=== PATIENT | female | born 1950 | race Caucasian/White ===

== ENCOUNTER 2018-05-30 15:31 | Emergency (ER) | payer MEDICARE ==
[~2018-05-30] VITALS: Ht 165.1 cm; Wt 79.4 kg
[2018-05-30] MEDS ORDERED: FAMOTIDINE 20 MG/2 ML VIAL IV STA (15:41)
[2018-05-30] MEDS ORDERED: DEXAMETHASONE SOD PHOS INJ 4 MG/ML VIAL ONE (15:42)
[2018-05-30] MEDS ORDERED: DIPHENHYDRAMINE HCL INJ 50 MG/ML VIAL ONE (15:42)
[2018-05-30] MEDS ORDERED: DEXAMETHASONE SOD PHOS 10 MG/1 ML VIAL IV ONE (15:45)
[2018-05-30] MEDS ORDERED: DIPHENHYDRAMINE HCL INJ 50 MG/ML VIAL IV ONE (15:45)
[2018-05-30] MEDS ORDERED: SODIUM CHLORIDE 0.9% 1000ML 1,000 ML IV ONE (16:00)
[2018-05-30 16:23] LABS: BASOPHILS % 0.5 % (0.0-1.0); EOSINOPHILS # (AUTO) 0.1 (0.0-0.4); HEMATOCRIT 46.5 % (34.2-44.1); HEMOGLOBIN 15.3 g/dL (12.0-16.0); LYMPHOCYTES # (AUTO) 3.3 (1.0-3.2); LYMPHOCYTES % 39.9 % (18.0-39.1); MEAN CORPUSCULAR HGB CONC 32.9 g/dL (31-35); MEAN CORPUSCULAR VOLUME 85.2 fL (81-99); MONOCYTES # (AUTO) 0.6 (0.2-0.8); MONOCYTES % 7.4 % (4.4-11.3); NEUTROPHILS # (AUTO) 4.2 (2.1-6.9); PLATELET COUNT 487 x10e3/uL (140-360); RED BLOOD COUNT 5.46 x10e6/uL (3.6-5.1); RED CELL DISTRIBUTION WIDTH 13.5 % (11.7-14.4)
[2018-05-30 16:36] LABS: ANION GAP 17.2 mmol/L (8-16); CREATININE, SERUM 1.09 mg/dL (0.57-1.11); POTASSIUM 4.2 mmol/L (3.5-5.1)
[2018-05-30 16:43] LABS: CREATINE KINASE MB 1.7 ng/mL (0-5.0)
[2018-05-30] MEDS ORDERED: LISINOPRIL10 MG PO (16:50)
[2018-05-30] MEDS ORDERED: ASPIRIN325 MG PO (16:50)
[2018-05-30] MEDS ORDERED: CARVEDILOL12.5 MG PO (16:50)
[2018-05-30] MEDS ORDERED: IBUPROFEN400 MG PO (16:50)
[2018-05-30 19:06] VITALS: BP 103/65
== END 2018-05-30 19:35 | disposition home or self-care (01) ==
LOC: ER 15:31
DX: L50.9 Urticaria, unspecified (principal); T88.6XXA Anaphylactic reaction due to adverse effect of correct drug or medicament properly administered, initial encounter; T36.1X5A Adverse effect of cephalosporins and other beta-lactam antibiotics, initial encounter; I10 Essential (primary) hypertension
CPT/HCPCS: 36415; 80048; 82550; 82553; 84484; 85025; 93005; 99284; J1100; J1200

== ENCOUNTER 2018-09-23 00:17 | Emergency (ER) | payer MEDICARE ==
[~2018-09-23] VITALS: Ht 165.1 cm; Wt 79.4 kg
[~2018-09-23 00:17] MED LIST: ASPIRIN325 MG PO; CARVEDILOL12.5 MG PO; IBUPROFEN400 MG PO; LISINOPRIL10 MG PO
--- OUTSIDE RECORDS SUMMARY | 2018-09-23 00:20 | XMS REPORT | Clinical Summary ---
Author Author [facility] Organization [facility] Address Unknown Phone Unavailable Care Team Providers Care Project Associate Name Role Phone Narayan Meeks MD PCP Unavailable Allergies Comments Active Allergy Reactions Severity Noted Date Restricted Airway Penicillins Anaphylaxis High 12/04/2015 Medications End Date Status Medication Sig Dispensed Refills Start Date Active acetaminophen (TYLENOL) Take 500 mg 0 500 MG tablet by mouth every 6 (six) hours as needed for mild pain. Active carvedilol (COREG) 25 MG Take 25 mg by 0 tablet mouth daily. Active lisinopril Take 40 mg by 0 (PRINIVIL,ZESTRIL) 40 mg mouth every tablet morning. 08/18/2019 Active cephalexin (KEFLEX) 500 TAKE ONE 100 capsule 3 MG capsuleIndications: CAPSULE BY 8 Urinary tract infection MOUTH 4 TIMES without hematuria, site DAILY unspecified NEEDED (DYSURIA) FOR UP TO 360 DAYS 02/22/2019 Active ciprofloxacin (CIPRO) 500 Take 1 tablet 20 tablet 2 MG tabletIndications: (500 mg 8 Recurrent UTI total) by mouth 2 (two) times a day as needed (UTI symptoms) for up to 180 days. 07/06/2018 Discontinued diltiazem (CardIZEM) 30 Take 30 mg by 0 MG tablet mouth 4 (four) times a day. 10/07/2017 conjugated estrogens Insert 1 g 30 g 1 (PREMARIN) 0.625 mg/gram into the 7 vaginal creamIndications: vagina 2 Urinary tract infection (two) times a with hematuria, site week. unspecified 07/06/2018 Discontinued cephalexin (KEFLEX) 500 Take 1 100 capsule 3 MG capsuleIndications: capsule (500 7 Urinary tract infection mg total) by without hematuria, site mouth 4 unspecified (four) times a day as needed (dysuria) for up to 360 days. 10/27/2017 Discontinued ciprofloxacin (CIPRO) 500 Take 1 tablet 14 tablet 2 MG tabletIndications: (500 mg 7 Urinary tract infection total) by without hematuria, site mouth 2 (two) unspecified times a day for 7 days. 11/03/2017 ciprofloxacin (CIPRO) 500 TAKE ONE 14 tablet 2 MG tabletIndications: TABLET BY 8 Urinary tract infection MOUTH TWICE without hematuria, site DAILY FOR 7 unspecified DAYS 01/09/2018 ciprofloxacin (CIPRO) 500 Take 1 tablet 14 tablet 0 MG tabletIndications: (500 mg 8 Urinary tract infection total) by without hematuria, site mouth 2 (two) unspecified times a day for 7 days. for 7 days 04/21/2018 ciprofloxacin (CIPRO) 500 TAKE 1 TABLET 14 tablet 2 MG tablet BY MOUTH 8 TWICE DAILY FOR 7 DAYS 06/04/2018 ciprofloxacin (CIPRO) 500 Take 1 tablet 14 tablet 1 MG tabletIndications: (500 mg 8 Urinary tract infection total) by without hematuria, site mouth 2 (two) unspecified times a day for 14 days. 05/31/2018 fluconazole (DIFLUCAN) Take 1 tablet 5 tablet 1 100 MG tablet (100 mg 8 total) by mouth daily as needed (vaginal itching) for up to 10 days. 07/03/2018 fluconazole (DIFLUCAN) Take 1 tablet 7 tablet 0 100 MG tablet (100 mg 8 total) by mouth daily for 7 days. 07/08/2018 Discontinued ibuprofen (ADVIL,MOTRIN) Take 800 mg 0 800 MG tablet by mouth every morning. 07/08/2018 Discontinued aspirin 325 MG tablet Take 325 mg 0 by mouth nightly. 08/07/2018 pantoprazole (PROTONIX) Take 1 tablet 60 tablet 0 40 MG EC (40 mg total) 8 tabletIndications: by mouth 2 Anemia, unspecified type (two) times a day for 30 days. 08/07/2018 diclofenac (VOLTAREN) 1 % Apply 1 Tube 0 gel topically 4 8 (four) times a day for 30 days. 07/14/2018 Discontinued sulfamethoxazole-trimetho Take 1 tablet 14 tablet 0 prim (BACTRIM DS) 800-160 by mouth 2 8 mg per tablet (two) times a day for 7 days. 07/23/2018 Discontinued sulfamethoxazole-trimetho Take 1 tablet 30 tablet 0 prim (BACTRIM DS) 800-160 by mouth 2 8 mg per tabletIndications: (two) times a Recurrent UTI day for 15 days. 08/01/2018 ertapenem 1 g in sodium Infuse 1 g 0 chloride 0.9% 50 mL IVPB into a venous 8 catheter daily for 8 days. 08/13/2018 fluconazole (DIFLUCAN) Take 1 tablet 10 tablet 0 200 MG tablet (200 mg 8 total) by mouth daily for 10 days. Active Problems Problem Noted Date Pyelonephritis 08/03/2018 Anemia 07/06/2018 GI bleed 07/06/2018 Gastrointestinal hemorrhage associated with gastritis 07/06/2018 Overview: Added automatically from request for surgery [id number] Uterine fibroid 12/04/2015 Renal cell carcinoma 12/04/2015 Overview: left Resolved Problems Problem Noted Date Resolved Date Flank pain 07/21/2018 08/03/2018 Urinary tract infection 12/04/2015 08/03/2018 Encounters Care Team Description Date Type Specialty Narayan Meeks MD Recurrent UTI (Primary Dx) 08/26/2018 Refill UrologNarayan Arizmendi MD Urinary tract infection without hematuria, site unspecified 08/18/2018 Refill Narayan Esparza MD Pyelonephritis (Primary Dx); Renal cell carcinoma of left kidney (HCC) 08/03/2018 Office Visit Narayan Esparza MD 07/30/2018 Telephone Narayan Esparza MD 07/29/2018 Telephone Narayan Esparza MD 07/29/2018 Orders Only Urology Alize Fitzgerald RN 07/23/2018 Telephone General Internal Medicine Akin Villarreal MD Nathani, Imran Sattar, MD Flank pain (Primary Dx); Fever, unspecified fever cause; Bacteriuria; Acute kidney injury (HCC); Urinary tract infection without hematuria, site unspecified 07/21/2018 [facility] General Internal Medicine - Encounter 07/23/2018 Narayan Meeks MD 07/21/2018 Telephone Urology Narayan Meeks MD Recurrent UTI (Primary Dx); Renal cell carcinoma of left kidney (HCC); Gastrointestinal hemorrhage associated with acute gastritis 07/14/2018 Office Visit Urology Carloz Velazquez MD Recurrent UTI (Primary Dx) 07/09/2018 Office Visit Internal Medicine Jesus Clay MD 07/07/2018 Anesthesia Gastroenterology Event Dmitriy Simpson MD ESOPHAGOGASTRODUODENOSCOPY (EGD) 07/07/2018 Surgery Gastroenterology Vladimir Bejarano MD Colton, Lara, MD Anemia, unspecified type (Primary Dx); Gastrointestinal hemorrhage with melena; Generalized abdominal pain; Dizziness; Syncope, unspecified syncope type; Weakness generalized; Gastrointestinal hemorrhage associated with gastritis, unspecified gastritis type; Acute hyperglycemia 07/06/2018 [facility] Orthopedic Surgery - Encounter 07/08/2018 Narayan Meeks MD 06/26/2018 Telephone UrologNarayan Arizmendi MD Renal cell carcinoma of left kidney (Primary Dx); Urinary tract infection without hematuria, site unspecified 05/21/2018 Office Visit Narayan Esparza MD 05/20/2018 Telephone Narayan Esparza MD 04/14/2018 Refill Urology Narayan Meeks MD Urinary tract infection without hematuria, site unspecified (Primary Dx) 01/02/2018 Refill Urology Narayan Meeks MD Urinary tract infection without hematuria, site unspecified 10/27/2017 Refill Urology after 09/22/2017 Family History Relation Name Status Comments Brother Brother Father Mother Sister Sister Social History Date Tobacco Use Types Packs/Day Years Used Never Smoker Smokeless Tobacco: Never Used Alcohol Use Drinks/Week oz/Week Comments No Sex Assigned at Date Recorded Not on file Industry Job Start Date Occupation Not on file Not on file Not on file Travel End Travel History Travel Start No recent travel history available. Last Filed Vital Signs Time Taken Vital Sign Reading 08/03/2018 3:15 PM [facility] Blood Pressure 151/87 08/03/2018 3:15 PM [facility] Pulse 59 07/23/2018 7:47 AM CDT Temperature 36.8 C (98.3 F) 08/03/2018 3:15 PM [facility] Respiratory Rate 18 07/23/2018 10:43 AM CDT Oxygen Saturation 94% - Inhaled Oxygen - Concentration 08/03/2018 3:15 PM [facility] Weight 105 kg (231 lb) 08/03/2018 3:15 PM [facility] Height 165.1 cm (5' 5") 08/03/2018 3:15 PM [facility] Body Mass Index 38.44 Plan of Treatment Care Team Description Date Type Specialty Carloz Velazquez MD [id number] [place] [address] [phone] 10/08/2018 Office Visit [place] [address] [address] [address] [place], [place] [id number] 08/26/2019 Office Visit Urology Health Maintenance Due Date Last Done Comments BREAST CANCER SCREENING 2002 COLON CANCER SCREENING 2002 SHINGLES VACCINES (1 of 2002 2) PNEUMOCOCCAL 2017 POLYSACCHARIDE VACCINE AGE 65 AND OVER PNEUMOCOCCAL-13 2017 INFLUENZA VACCINE 04/22/2018 Procedures Comments Procedure Name Priority Date/Time Associated Diagnosis URINALYSIS SCREEN AND Routine 08/05/2018 Complicated urinary tract MICROSCOPY, WITH REFLEX 10:01 AM [facility] infection TO CULTURE URINE CULTURE Routine 08/05/2018 10:01 AM [facility] POC URINALYSIS DIPSTICK Routine 08/03/2018 Pyelonephritis 4:39 PM [facility] URINE CULTURE Routine 08/03/2018 Pyelonephritis 3:39 PM [facility] URINALYSIS, AUTOMATED Routine 08/03/2018 Pyelonephritis WITH MICROSCOPY 3:38 PM [facility] OBTAIN MEDICAL RECORDS Routine 07/29/2018 HC CATH DUAL LUMEN PICC Routine 07/23/2018 4:07 PM CDT HC US GUIDED VASCULAR Routine 07/23/2018 ACCESS 4:07 PM CDT HC CVL PICC INSERT 5 YRS Routine 07/23/2018 OR > W/O IMG GUID 4:07 PM CDT ESTIMATED GFR Routine 07/23/2018 4:15 AM CDT BASIC METABOLIC PANEL Routine 07/23/2018 4:15 AM CDT HC COMPLETE BLD COUNT Routine 07/23/2018 W/AUTO DIFF 4:15 AM CDT MRI ABDOMEN W WO CONTRAST Routine 07/22/2018 5:11 PM CDT BLOOD CULTURE, AEROBIC & Routine 07/21/2018 ANAEROBIC 11:[address] RENAL STONE PROTOCOL STAT 07/21/2018 11:25 AM CDT BLOOD CULTURE, AEROBIC & Routine 07/21/2018 ANAEROBIC 11:22 AM CDT ESTIMATED GFR STAT 07/21/2018 9:10 AM CDT MAGNESIUM LEVEL STAT 07/21/2018 9:10 AM CDT COMPREHENSIVE METABOLIC STAT 07/21/2018 PANEL 9:10 AM CDT URINALYSIS SCREEN AND STAT 07/21/2018 MICROSCOPY, WITH REFLEX 9:10 AM CDT TO CULTURE HC COMPLETE BLD COUNT STAT 07/21/2018 W/AUTO DIFF 9:10 AM CDT GRAM STAIN STAT 07/21/2018 9:10 AM CDT URINE CULTURE STAT 07/21/2018 9:10 AM CDT POC URINALYSIS DIPSTICK Routine 07/14/2018 Recurrent UTI 5:00 PM CDT URINE CULTURE Routine 07/14/2018 Recurrent UTI 4:50 PM CDT POC URINALYSIS DIPSTICK Routine 07/09/2018 Recurrent UTI 4:52 PM CDT URINALYSIS, COMPLETE, Routine 07/09/2018 Recurrent UTI WITH REFLEX TO CULTURE 4:45 PM CDT URINE CULTURE Routine 07/09/2018 4:45 PM CDT HC COMPLETE BLD COUNT Routine 07/08/2018 W/AUTO DIFF 6:54 AM CDT TOTAL IRON BINDING Routine 07/08/2018 CAPACITY 6:54 AM CDT RETICULOCYTE COUNT Routine 07/08/2018 6:54 AM CDT FERRITIN LEVEL Routine 07/08/2018 6:54 AM CDT TRANSFUSE RED BLOOD CELLS STAT 07/07/2018 7:36 PM CDT HC COMPLETE BLD COUNT STAT 07/07/2018 W/AUTO DIFF 4:12 PM CDT TRANSFUSE RED BLOOD CELLS STAT 07/07/2018 2:49 PM CDT SURGICAL PATHOLOGY Routine 07/07/2018 REQUEST 1:53 PM CDT ESOPHAGOGASTRODUODENOSCOP 07/07/2018 Gastrointestinal Y (EGD) 10:00 AM CDT hemorrhage associated with gastritis, unspecified gastritis type SMEAR REVIEW Routine 07/07/2018 3:48 AM CDT TROPONIN Routine 07/07/2018 3:48 AM CDT ESTIMATED GFR Routine 07/07/2018 3:48 AM CDT HC COMPLETE BLD COUNT Routine 07/07/2018 W/AUTO DIFF 3:48 AM CDT BASIC METABOLIC PANEL Routine 07/07/2018 3:48 AM CDT TRANSFUSE RED BLOOD CELLS STAT 07/07/2018 2:34 AM CDT TRANSFUSE RED BLOOD CELLS STAT 07/06/2018 11:34 PM CDT GRAM STAIN STAT 07/06/2018 10:15 PM CDT URINE CULTURE STAT 07/06/2018 10:15 PM CDT URINALYSIS SCREEN AND STAT 07/06/2018 MICROSCOPY, WITH REFLEX 10:06 PM CDT TO CULTURE GASTROINTESTINAL PANEL Routine 07/06/2018 8:17 PM CDT B NATRIURETIC PEPTIDE STAT 07/06/2018 7:40 PM CDT TROPONIN STAT 07/06/2018 7:40 PM CDT ECG 12-LEAD STAT 07/06/2018 7:19 PM CDT [facility], E/M Routine 07/06/2018 30-74 MINUTES 6:31 PM CDT PREPARE RBC Timed 07/06/2018 5:20 PM CDT PREPARE RBC Timed 07/06/2018 5:20 PM CDT PREPARE RBC Timed 07/06/2018 5:20 PM CDT SMEAR REVIEW STAT 07/06/2018 5:20 PM CDT ESTIMATED GFR STAT 07/06/2018 5:20 PM CDT TYPE AND SCREEN Timed 07/06/2018 5:20 PM CDT LIPASE LEVEL STAT 07/06/2018 5:20 PM CDT COMPREHENSIVE METABOLIC STAT 07/06/2018 PANEL 5:20 PM CDT HC COMPLETE BLD COUNT STAT 07/06/2018 W/AUTO DIFF 5:20 PM CDT CREATININE LEVEL Routine 05/20/2018 Renal cell carcinoma of 10:31 AM CDT left kidney after 09/22/2017 Results * Urinalysis screen and microscopy, with reflex to culture (08/05/2018 10:01 AM [facility]) Only the most recent of 3 results within the time period is included. Specimen site Clean catch [facility] Color, UA Straw YELLOW [facility] Appearance, UA Clear Clear [facility] Specific gravity, UA 1.018 1.005 - 1.030 [facility] pH, UA 5.0 5.0 - 8.0 [facility] Protein, UA Negative Negative [facility] Glucose, UA Negative Negative [facility] Ketones, UA Negative Negative [facility] Bilirubin, UA Negative Negative [facility] Blood, UA Negative Negative [facility] Nitrite, UA Negative NEGATIVE [facility] Urobilinogen, UA <2.0 <2.0 E.U./dL [facility] Leukocyte esterase, UA Negative Negative [facility] Epithelial cells, UA 1 0 - 15 /HPF [facility] WBC, UA None seen 0 - 5 /Hpf [facility] RBC, UA None seen 0 - 5 /HPF [facility] Bacteria, UA None seen None seen [facility] Yeast, UA None seen None Seen [facility] Yeast with pseudohyphae, None seen [facility] Specimen Urine Performing Organization Address City/[facility] [place] [address] PATHOLOGY AND GENOMIC MEDICINE [address] * Urine culture (08/05/2018 10:01 AM [facility]) Only the most recent of 6 results within the time period is included. Urine culture SEE COMMENTComment: [facility] Bacteriuria screen negative. [facility] Performing Organization Address [facility] [place] [address] PATHOLOGY AND GENOMIC MEDICINE [address] * POC urinalysis dipstick (08/03/2018 4:39 PM [facility]) Only the most recent of 3 results within the time period is included. Color urine, POC Yellow Clarity urine, POC Clear Glucose urine, POC Negative Negative Bilirubin urine, POC Negative Negative Ketones urine, POC Negative Negative Specific gravity urine, >/=1.030 1.005 - 1.030 POC Blood urine, POC Trace (A) Negative pH urine, POC 5.5 5.0, 5.5, 6.0, 6.5, 7.0, 7.5, 8.0, 8.5 Protein urine, POC Negative Negative Urobilinogen urine, POC <2.0 <2.0 Nitrite urine, POC Negative Negative Leukocyte esterase urine, Negative Negative POC Specimen Urine * Urinalysis, automated with microscopy (08/03/2018 3:38 PM [facility]) Color, UA YELLOW YELLOW [facility] [employer] Appearance CLOUDY (A) CLEAR [facility] [employer] Specific gravity, urine 1.022 1.001 - 1.035 [facility] [employer] pH, urine 5.5 5.0 - 8.0 [facility] [employer] Glucose, urine NEGATIVE NEGATIVE [facility] [employer] Bilirubin, UA NEGATIVE NEGATIVE [facility] [employer] Ketones, UA NEGATIVE NEGATIVE [facility] [employer] Occult blood, urine NEGATIVE NEGATIVE [facility] [employer] Protein, UA NEGATIVE NEGATIVE [facility] [employer] Nitrite, UA NEGATIVE NEGATIVE [facility] [employer] Leukocyte esterase, UA NEGATIVE NEGATIVE [facility] [employer] WBC, UA 0-5 < OR=5 /HPF [facility] [employer] RBC, UA 0-2 < OR=2 /HPF [facility] [employer] Squamous epithelial 0-5 < OR=5 /HPF [facility] cells, UA [employer] Bacteria, UA FEW (A) NONE SEEN /HPF [facility] [employer] Hyaline casts, UA NONE SEEN NONE SEEN /LPF [facility] [employer] Specimen Urine Resulting Agency Comment Performing Organization Information: Site ID: [id number] Name: [facility] Address: [address] [place] [id number] Director: Danelle Mujica Performing Organization Address City/State/Zipcode [place] [address] * Obtain medical records (07/29/2018) Narrative Performed At * PICC INSERTION (07/23/2018 4:07 PM CDT) Narrative Performed At Johanna Dan RN 07/23/20184:09 PM PICC insertion Date/Time: 07/23/2018 4:08 PM Performed by: JOHANNA DAN Authorized by: YAYA VERAS Consent: Consent obtained:Verbal Consent given by:Patient Risks discussed: infection, superficial thrombus and deep vein thrombus [place] protocol: Procedure explained and questions answered to patient or proxy's satisfaction: yes Relevant documents present and verified: yes Test results available and properly labeled: yes Imaging studies available: yes Required blood products, implants, devices, and special equipment available: yes Site/side marked: yes Immediately prior to procedure, a time out was called: yes Patient identity confirmed:Verbally with patient and arm band Pre-procedure details: Hand hygiene: Hand hygiene performed prior to insertion Sterile barrier technique: All elements of maximal sterile technique followed Skin preparation:ChloraPrep Skin preparation agent: Skin preparation agent completely dried prior to procedure Anesthesia (see MAR for exact dosages): Anesthesia method:Local infiltration Local anesthetic:Lidocaine 1% w/o epi PICC Line Placement Details (Will create an LDA): Patient position:Trendelenburg Indication:Known [facility] IV therapy Location:Left basilic Device Type:Non-valved Catheter size:5 Fr PICC Characteristics: Catheter Brand:[employer] Internal Catheter Length (cm):41 Total Catheter Length (cm):41 Catheter Lot Number:[id number] Catheter Expiration Date:06/21/2019 Procedure Details: Landmarks identified: yes Ultrasound guidance: yes Sterile ultrasound techniques: Sterile gel and sterile probe covers were used Number of attempts:1 Number of PICC kits used during procedure:1 Purpose of procedure:PICC Placement Successful PICC Placement: Yes Patency/Placement:Flushes without difficulty, flushed with 10 mL normal saline, positive blood return and injection cap placed PICC placed utlizing ultrasound-guided Modified Seldinger Technique: Yes Dressing/Securement:Catheter securement device and antimicrobial dressing applied Blood Loss Amount:Less than 20 mL Post-Procedure Details: Post-procedure:Dressing applied Patient tolerance of procedure:Tolerated well, no immediate complications Comments: ECG tip verification. * Estimated GFR (07/23/2018 4:15 AM CDT) Only the most recent of 4 results within the time period is included. Estimated GFR 77 mL/min/1.73 m2 [facility] DEPARTMENT OF Comment: PATHOLOGY AND CatergoryUnitsInte GENOMIC MEDICINE rpretation G1 >=90 Normal or high G2 60-89Mildly decreased [id number] Mildly to moderately decreased [id number] Moderately to severely decreased G4 15-29Severely decreased G5 <15Kidney failure The eGFR was calculated using the Chronic Kidney Disease Epidemiology Collaboration (CKD-EPI) equation. Interpretation is based on recommendations of the National Kidney Foundation-Kidney Disease Outcomes Quality Initiative (NKF-KDOQI) published in 2014. Specimen Plasma specimen Performing Organization Address [facility]/Zipcode Phone Number [facility] [phone] [place], [place] [address] [place] [address] PATHOLOGY AND GENOMIC MEDICINE * CBC with platelet and differential (07/23/2018 4:15 AM CDT) Only the most recent of 6 results within the time period is included. WBC 2.7 (L) 4.5 - 11.0 k/uL [facility] DEPARTMENT OF PATHOLOGY AND GENOMIC MEDICINE RBC 3.45 (L) 4.20 - 5.50 M/uL [facility] DEPARTMENT OF PATHOLOGY AND GENOMIC MEDICINE HGB 9.8 (L) 14.0 - 18.0 g/dL [facility] DEPARTMENT OF PATHOLOGY AND GENOMIC MEDICINE HCT 31.0 (L) 37.0 - 47.0 % [facility] DEPARTMENT OF PATHOLOGY AND GENOMIC MEDICINE MCV 89.9 82.0 - 100.0 fL [facility] MCH 28.4 27.0 - 34.0 pg [facility] OF PATHOLOGY AND GENOMIC MEDICINE MCHC 31.6 31.0 - 37.0 g/dL [facility] DE[facility] OF PATHOLOGY AND GENOMIC MEDICINE RDW - SD 53.4 37.0 - 55.0 fL [facility] DE[facility] OF PATHOLOGY AND GENOMIC MEDICINE MPV 10.2 8.8 - 13.2 fL [facility]OLOG[facility] AND GENOMIC MEDICINE Platelet count 186 150 - 400 K/uL [facility] DEPARTMENT OF PATHOLOGY AND GENOMIC MEDICINE Nucleated RBC 0.00 /100 WBC [facility]OLOG[facility] AND GENOMIC MEDICINE Neutrophils 36.0 (L) 39.0 - 69.0 % [facility] DEPARTMENT OF PATHOLOGY AND GENOMIC MEDICINE Lymphocytes 46.7 (H) 25.0 - 45.0 % [facility]OLOG[facility] AND GENOMIC MEDICINE Monocytes 14.0 (H) 0.0 - 10.0 % [facility] DEPARTMENT OF PATHOLOGY AND GENOMIC MEDICINE Eosinophils 2.6 0.0 - 5.0 % [facility] DEPARTMENT OF PATHOLOGY AND GENOMIC MEDICINE Basophils 0.7 0.0 - 1.0 % [facility] DEPARTMENT OF PATHOLOGY AND GENOMIC MEDICINE Immature granulocytes 0.0Comment: "Immature 0.0 - 1.0 % [facility] DEPARTMENT OF granulocytes" (promyelocytes, PATHOLOGY AND myelocytes, metamyelocytes) GENOMIC MEDICINE Specimen Blood Performing Organization Address City/[facility]/Zipcode Phone Number [facility] [phone] [place], [place] [address] [place] [address] PATHOLOGY AND GENOMIC MEDICINE * Basic metabolic panel (07/23/2018 4:15 AM CDT) Only the most recent of 2 results within the time period is included. Sodium 138 135 - 148 mEq/L [facility] OF PATHOLOGY AND GENOMIC MEDICINE Potassium 4.4 3.5 - 5.0 mEq/L [facility] OF PATHOLOGY AND GENOMIC MEDICINE Chloride 107 99 - 109 mEq/L [facility] OF PATHOLOGY AND [facility]IC MEDICINE CO2 18 (L) 24 - 31 mEq/L [facility] OF PATHOLOGY AND [facility]ICINE Anion gap 13@ANIO 7 - 15 mEq/L [facility]OLOGY [facility] BUN 11 8 - 24 mg/dL [facility] Creatinine 0.80 0.50 - 0.90 mg/dL [facility] OF PATHOLOGY AND GENOMIC MEDICINE Glucose 113 (H) 65 - 99 mg/dL [facility] PATHOLOGY AND [facility]ICINE Calcium 8.3 (L) 8.6 - 10.6 mg/dL [facility] OF PATHOLOGY AND GENOMIC MEDICINE Specimen Plasma specimen Performing Organization Address City/State/Zipcode Phone Number [place] [phone] [facility] [address] [place] [address] PATHOLOGY AND GENOMIC MEDICINE * MRI Abdomen W Wo Contrast (07/22/2018 5:11 PM CDT) Narrative Performed At [facility] EXAMINATION:MRI ABDOMEN W WO CONTRAST CLINICAL HISTORY:Renal massrenal insufficiency, feverleft flank pain but history of left renal cell CA chromophobe 2.3 cm S P partial nephrectomy 2012 COMPARISON:Noncontrast CT July 21, 2018 TECHNIQUE: Multiplanar, multisequence MRI of the abdomen with and without intravenous gadolinium. FINDINGS: Image quality is moderately degraded on most of the sequences related to body habitus and motion artifact. Subtle scar is seen in the lower pole the left kidney consistent with partial nephrectomy. No locally recurrent mass is identified. There are 4 cysts in the left kidney, the largest measuring 1.2 cm in the upper pole and the other subcentimeter. No suspicious enhancing lesion is identified. Right kidney is unremarkable. No hydronephrosis. No perinephric edema or fluid collection. No retroperitoneal lymphadenopathy. Mild hepatic steatosis. No hepatic mass. The spleen is borderline enlarged. No adrenal mass. Unremarkable gallbladder. Pancreas is somewhat atrophic. Mild left and moderate dilatation of the common bile duct measuring 9 mm is nonspecific. No intrahepatic biliary dilatation. The pancreatic duct is also borderline dilated. No ascites. No suspicious osseous lesion. IMPRESSION: 1.No recurrent mass or metastatic disease in the abdomen status post left partial nephrectomy. 2.A few small left renal cysts, largest 1.2 cm. 3.Mild hepatic steatosis. [facility]-[id number] Procedure Note [facility], Radiology Results Incoming - 07/22/2018 5:32 PM CDT EXAMINATION: MRI ABDOMEN W WO CONTRAST CLINICAL HISTORY: Renal mass renal insufficiency, fever left flank pain but history of left renal cell CA chromophobe 2.3 cm S P partial nephrectomy 2012 COMPARISON: Noncontrast CT July 21, 2018 TECHNIQUE: Multiplanar, multisequence MRI of the abdomen with and without intravenous gadolinium. FINDINGS: Image quality is moderately degraded on most of the sequences related to body habitus and motion artifact. Subtle scar is seen in the lower pole the left kidney consistent with partial nephrectomy. No locally recurrent mass is identified. There are 4 cysts in the left kidney, the largest measuring 1.2 cm in the upper pole and the other subcentimeter. No suspicious enhancing lesion is identified. Right kidney is unremarkable. No hydronephrosis. No perinephric edema or fluid collection. No retroperitoneal lymphadenopathy. Mild hepatic steatosis. No hepatic mass. The spleen is borderline enlarged. No adrenal mass. Unremarkable gallbladder. Pancreas is somewhat atrophic. Mild left and moderate dilatation of the common bile duct measuring 9 mm is nonspecific. No intrahepatic biliary dilatation. The pancreatic duct is also borderline dilated. No ascites. No suspicious osseous lesion. IMPRESSION: 1. No recurrent mass or metastatic disease in the abdomen status post left partial nephrectomy. 2. A few small left renal cysts, largest 1.2 cm. 3. Mild hepatic steatosis. [facility]-[id number] Performing Organization Address [facility] Phone Number [facility] [address] [place] [address] * Blood culture, aerobic & anaerobic (07/21/2018 11:30 AM CDT) Only the most recent of 2 results within the time period is included. Blood culture isolate No growth after [address] [facility] DEPARTMENT OF incubation. PATHOLOGY AND Comment: GENOMIC MEDICINE Specimen Information Specimen Source: Blood Specimen Site: Hand, left Specimen Blood - Hand, left Performing Organization Address City/[facility]/Zipcode Phone Number [facility] DEPARTMENT OF [address] [place] [address] PATHOLOGY AND GENOMIC MEDICINE * CT Renal Stone Protocol (07/21/2018 11:25 AM CDT) Narrative Performed At EXAMINATION:CT RENAL STONE PROTOCOL RADIANT CLINICAL HISTORY:L flank painhematuria TECHNIQUE:Multiple axial images of the abdomen and pelvis were obtained without intravenous administration of iodinated contrast. Sagittal and coronal computerized reformatted images were also obtained. The lack of intravenous contrast reduces the sensitivity of detecting solid organ disease.CT scans are performed using radiation dose reduction techniques. Technical factors are evaluated and adjusted to ensure appropriate moderation of exposure. Automated dose management technology is applied to adjust radiation exposure while achieving a diagnostic quality image. COMPARISON:None. IMPRESSION: Abdomen: 1. There is no nephrolithiasis. The kidneys are normal in size and contour without hydronephrosis. There is a 10 mm renal cyst at the left upper pole. 2.The liver is normal in size and contour. The spleen is normal in size. The unenhanced pancreas, gallbladder, and adrenals are unremarkable. 3.Status post right lower quadrant abdominal wall mesh hernia repair. 4.Bowel is unobstructed. 5.The abdominal aorta is normal in caliber. There is no regional adenopathy. Pelvis: 1. The urinary bladder is unremarkable. 2.There is no pelvic mass or lymphadenopathy. 3.Degenerative change in the spine. [id number] Procedure Note Interface, Radiology Results Incoming - 07/21/2018 5:03 PM CDT EXAMINATION: CT RENAL STONE PROTOCOL CLINICAL HISTORY: L flank pain hematuria TECHNIQUE: Multiple axial images of the abdomen and pelvis were obtained without intravenous administration of iodinated contrast. Sagittal and coronal computerized reformatted images were also obtained. The lack of intravenous contrast reduces the sensitivity of detecting solid organ disease.CT scans are performed using radiation dose reduction techniques. Technical factors are evaluated and adjusted to ensure appropriate moderation of exposure. Automated dose management technology is applied to adjust radiation exposure while achieving a diagnostic quality image. COMPARISON: None. IMPRESSION: Abdomen: 1. There is no nephrolithiasis. The kidneys are normal in size and contour without hydronephrosis. There is a 10 mm renal cyst at the left upper pole. 2. The liver is normal in size and contour. The spleen is normal in size. The unenhanced pancreas, gallbladder, and adrenals are unremarkable. 3. Status post right lower quadrant abdominal wall mesh hernia repair. 4. Bowel is unobstructed. 5. The abdominal aorta is normal in caliber. There is no regional adenopathy. Pelvis: 1. The urinary bladder is unremarkable. 2. There is no pelvic mass or lymphadenopathy. 3. Degenerative change in the spine. [id number] Performing Organization Address City/[facility]/Zipcode Phone Number [facility] [address] [place] [address] * Gram stain (07/21/2018 9:10 AM CDT) Only the most recent of 2 results within the time period is included. Gram stain result No WBC's [facility] DEPARTMENT OF Few Gram negative rods PATHOLOGY AND Comment: GENOMIC MEDICINE Specimen Information Specimen Source: Urine Specimen Site: Random void Specimen Urine - Random void Performing Organization Address [facility]/Zipcode Phone Number [facility] [place] [address] PATHOLOGY AND GENOMIC MEDICINE * Magnesium level (07/21/2018 9:10 AM CDT) Magnesium 2.2 1.7 - 2.4 mg/dL [facility] DEPARTMENT OF PATHOLOGY AND GENOMIC MEDICINE Specimen Plasma specimen Performing Organization Address City/[facility] Cent[facility]ode Phone Number [facility] [address] [address] [facility] [address] [place] [address] PATHOLOGY AND [employer] MED[facility] * Comprehensive metabolic panel (07/21/2018 9:10 AM CDT) Only the most recent of 2 results within the time period is included. Sodium 135 135 - 148 mEq/L [facility] DEPARTMENT OF PATHOLOGY AND GENOMIC MEDICINE Potassium 5.2 (H) 3.5 - 5.0 mEq/L [facility] DEPARTMENT OF PATHOLOGY AND GENOMIC MEDICINE Chloride 101 99 - 109 mEq/L [facility] DEPARTMENT OF PATHOLOGY AND GENOMIC MEDICINE CO2 22 (L) 24 - 31 mEq/L [facility] DEPARTMENT OF PATHOLOGY AND GENOMIC MEDICINE Anion gap 12@ANIO 7 - 15 mEq/L [facility] DEPARTMENT OF PATHOLOGY AND GENOMIC MEDICINE BUN 20 8 - 24 mg/dL [facility] DEPARTMENT OF PATHOLOGY AND GENOMIC MEDICINE Creatinine 1.00 (H) 0.50 - 0.90 mg/dL [facility] DEPARTMENT OF PATHOLOGY AND GENOMIC MEDICINE Glucose 131 (H) 65 - 99 mg/dL [facility] DEPARTMENT OF PATHOLOGY AND GENOMIC MEDICINE Calcium 9.0 8.6 - 10.6 mg/dL [facility] DEPARTMENT OF PATHOLOGY AND GENOMIC MEDICINE Protein 8.0 6.3 - 8.2 g/dL [facility] DEPARTMENT OF PATHOLOGY AND GENOMIC MEDICINE Albumin 4.4 3.5 - 5.0 g/dL [facility] DEPARTMENT OF PATHOLOGY AND GENOMIC MEDICINE A/G ratio 1.22 0.70 - 3.80 [facility] DEPARTMENT OF PATHOLOGY AND GENOMIC MEDICINE Alkaline phosphatase 82 30 - 115 U/L [facility] DEPARTMENT OF PATHOLOGY AND GENOMIC MEDICINE AST 26 15 - 46 U/L [facility] DEPARTMENT PATHOLOGY AND GENOMIC MEDICINE ALT 31 10 - 55 U/L [facility] DEPARTMENT OF PATHOLOGY AND GENOMIC MEDICINE Total bilirubin 0.4 0.2 - 1.2 mg/dL [facility] OF PATHOLOGY AND GENOMIC MEDICINE Specimen Plasma specimen Performing Organization Address City/[facility] Centercode Phone Number [address] [place] [address] PATHOLOGY AND GENOMIC MEDICINE * URINALYSIS, COMPLETE, WITH REFLEX TO CULTURE (07/09/2018 4:45 PM CDT) Color, UA DARK YELLOW YELLOW [facility] [employer] Appearance CLOUDY (A) CLEAR [facility] Specific gravity, urine 1.031 1.001 - 1.035 [facility] [employer] pH, urine 6.0 5.0 - 8.0 [facility] [employer] Glucose, urine NEGATIVE NEGATIVE [facility] [employer] Bilirubin, UA NEGATIVE NEGATIVE [facility] [employer] Ketones, UA TRACE (A) NEGATIVE [facility] [employer] Occult blood, urine NEGATIVE NEGATIVE [facility] [employer] Protein, UA TRACE (A) NEGATIVE [facility] [employer] Nitrite, UA POSITIVE (A) NEGATIVE [facility] [employer] Leukocyte esterase, UA 2+ (A) NEGATIVE [facility] [employer] WBC, UA 10-20 (A) < OR=5 /HPF [facility] [employer] RBC, UA 0-2 < OR=2 /HPF [facility] [employer] Squamous epithelial 0-5 < OR=5 /HPF [facility] cells, UA [employer] Bacteria, UA MANY (A) NONE SEEN /HPF [facility] [employer] Calcium oxalate crystals, FEW NONE OR FEW /HPF [facility] UA [employer] Amorphous crystals FEW NONE OR FEW /HPF [facility] [employer] Hyaline casts, UA NONE SEEN NONE SEEN /LPF [facility] [employer] Comment FEW MUCOUS THREADS [facility] [employer] Reflex CULTURE INDICATED - RESULTS TO [facility] Narrative Performed At FASTING:NO [facility] FASTING: NO Resulting Agency Comment Performing Organization Information: Site ID: [id number] Name: [facility] Address: [address] [place] [address] Director: Danelle Mujica Performing Organization Address City/[facility]/Zipcode [place] [address] * Total iron binding capacity (07/08/2018 6:54 AM CDT) Iron level 69 37 - 145 ug/dL [facility] DEPARTMENT OF PATHOLOGY AND GENOMIC MEDICINE Iron binding capacity 348 200 - 400 ug/dL [facility] DEPARTMENT OF PATHOLOGY AND GENOMIC MEDICINE % Saturation 19.8 15.0 - 38.0 % [facility] DEPARTMENT OF PATHOLOGY AND GENOMIC MEDICINE Specimen Plasma specimen Performing Organization Address City/[facility] [address] PATHOLOGY AND [facility] MEDICINE * Reticulocyte count (07/08/2018 6:54 AM CDT) Retic %, auto 3.2 (H) 0.5 - 2.1 % [facility] DEPARTMENT OF PATHOLOGY AND GENOMIC MEDICINE Retic absolute, auto 0.1179 (H) 0.0210 - 0.1155 m/uL [facility] DEPARTMENT OF PATHOLOGY AND GENOMIC MEDICINE Specimen Blood Performing Organization Address [facility] [address] PATHOLOGY AND [facility] MEDICINE * Ferritin level (07/08/2018 6:54 AM CDT) Ferritin level 46 13 - 150 ng/mL [facility] DEPARTMENT OF PATHOLOGY AND GENOMIC MEDICINE Specimen Plasma specimen Performing Organization Address [facility] [place] [address] PATHOLOGY AND [facility] MEDICINE * Transfuse RBC, 2 Units (07/07/2018 7:36 PM CDT) Only the most recent of 6 results within the time period is included. * Surgical pathology request (07/07/2018 1:53 PM CDT) [facility] DEPARTMENT OF PATHOLOGY AND GENOMIC MEDICINE Surgical pathology report See link below for PDF Lab [facility] DEPARTMENT OF Report PATHOLOGY AND GENOMIC MEDICINE Result status This is Final Report for [facility] DEPARTMENT OF [id number] PATHOLOGY AND GENOMIC MEDICINE Performing Organization Address [facility] [place] [address] PATHOLOGY AND [facility] MEDICINE * Smear review (07/07/2018 3:48 AM CDT) Only the most recent of 2 results within the time period is included. Platelet slide review Sona adequate [facility] DEPARTMENT OF PATHOLOGY AND GENOMIC MEDICINE Anisocytosis Moderate [facility] DEPARTMENT OF PATHOLOGY AND GENOMIC MEDICINE Ovalocytes Moderate [facility] DEPARTMENT OF PATHOLOGY AND GENOMIC MEDICINE Performing Organization Address City/[facility]/Zipcode Phone Number [address] [address] PATHOLOGY AND GENOMIC MEDICINE * Troponin (07/07/2018 3:48 AM CDT) Only the most recent of 2 results within the time period is included. Troponin <0.30 0.00 - 0.30 ng/mL [facility] DEPARTMENT OF Comment: PATHOLOGY AND 0.30 - 1.49 GENOMIC MEDICINE ng/mlMay indicate increased risk of acute coronary syndrome. >=1.5 ng/ml Consistent with acute myocardial infarction. The diagnostic value of a single normal or non-diagnostic result is questionable.Serial samples at 2-6 hour intervals are required to rule out acute myocardial injury. Specimen Plasma specimen Performing Organization Address City/[facility] Centerc[place] [address] PATHOLOGY AND [employer] MEDICINE * Gastrointestinal panel (07/06/2018 8:17 PM CDT) Gastrointestinal panel Negative for all pathogens [facility] DEPARTMENT OF tested: PATHOLOGY AND Negative for Salmonella GENOMIC MEDICINE Negative for Campylobacter Negative for Diarrheagenic E coli/Shigella Negative for Shiga-like toxin-producing E coli Negative for Plesiomonas shigelloides Negative for Yersinia enterocolitica Negative for Vibrio species Negative for Clostridium difficile (Toxin A/B) Negative for Cryptosporidium Negative for Giardia lamblia Negative for Cyclospora cayeteanensis Negative for Entamoeba histolytica Negative for Adenovirus F 40/41 Negative for Astrovirus Negative for Norovirus GI/GII Negative for Rotavirus A Negative for Sapovirus Negative for Clostridium difficile toxin Negative for E coli 0157 This real-time PCR assay detects the presence of nucleic acids (RNA or DNA) for the gastrointestinal pathogens listed. A result of "Not-detected" does not exclude the possibility of the presence of one or more pathogens at concentrations less than the detectable limits of the assay. Comment: Specimen Information Specimen Source: Stool Specimen Site: Nonpreserved Specimen Stool - Nonpreserved Performing Organization Address City/State/Zipcode Phone Number [facility] [address] PATHOLOGY AND GENOMIC MEDICINE * B natriuretic peptide (07/06/2018 7:40 PM CDT) BNP 45 0 - 100 pg/mL [facility] DEPARTMENT OF PATHOLOGY AND GENOMIC MEDICINE Specimen Blood Performing Organization Address City/[facility] Centercode Phone Number [facility] DEPARTMENT OF [address] [place] [address] PATHOLOGY AND GENOMIC MEDICINE * ECG 12 lead (07/06/2018 7:19 PM CDT) Ventricular rate 84 [facility] Atrial rate 84 [facility] M[facility] VA interval 164 [facility] M[facility] QRSD interval 92 [facility] QT interval 372 [facility] QTC interval 439 [facility] QRS axis [address] [facility] T wave axis 145 [facility] EKG impression Normal sinus rhythm-Right axis [facility] M[facility] deviation-Abnormal ECG-No previous ECGs available- Performing Organization Address City/[facility] Centercom[facility] Phone Number [facility] [address] [place] [address] * CRITICAL CARE (07/06/2018 6:31 PM CDT) Narrative Performed At Vladimir Bejarano MD 07/08/20189:21 AM Critical Care Performed by: VIMAL SNELL Authorized by: VLADIMIR BEJARANO Critical care provider statement: Critical care time (minutes):35 Critical care time was exclusive of:Separately billable procedures and treating other patients and teaching time Critical care was necessary to treat or prevent imminent or life-threatening deterioration of the following conditions:Cardiac failure Critical care was time spent personally by me on the following activities:Development of treatment plan with patient or surrogate, discussions with consultants, evaluation of patient's response to treatment, examination of patient, ordering and performing treatments and interventions, ordering and review of laboratory studies, ordering and review of radiographic studies, re-evaluation of patient's condition and review of old charts Lasha 'yes' if you are taking over critical care for this patient from another provider.: no * Prepare RBC, 2 Units (07/06/2018 5:20 PM CDT) Only the most recent of 3 results within the time period is included. Product name Red Blood Cells -1, Leukored [facility] DEPARTMENT OF PATHOLOGY AND GENOMIC MEDICINE Unit number [id number] [facility] DEPARTMENT OF PATHOLOGY AND GENOMIC MEDICINE Product code [id number] [facility] DEPARTMENT OF PATHOLOGY AND GENOMIC MEDICINE Dispense status Transfused [facility] DEPARTMENT OF PATHOLOGY AND GENOMIC MEDICINE Blood expiration date [id number] [facility] DEPARTMENT OF PATHOLOGY AND GENOMIC MEDICINE Blood type code 9500 [facility] DEPARTMENT OF PATHOLOGY AND GENOMIC MEDICINE Blood type O NEGATIVE [facility] DEPARTMENT OF PATHOLOGY AND GENOMIC MEDICINE Product name Red Blood Cells -1, Leukored [facility] DEPARTMENT OF PATHOLOGY AND GENOMIC MEDICINE Unit number [id number] [facility] DEPARTMENT OF PATHOLOGY AND GENOMIC MEDICINE Product code [id number] [facility] DEPARTMENT OF PATHOLOGY AND GENOMIC MEDICINE Dispense status Transfused [facility] DEPARTMENT OF PATHOLOGY AND GENOMIC MEDICINE Blood expiration date [id number] [facility] DEPARTMENT OF PATHOLOGY AND GENOMIC MEDICINE Blood type code 5100 [facility] DEPARTMENT OF PATHOLOGY AND GENOMIC MEDICINE Blood type O POSITIVE [facility] DEPARTMENT OF PATHOLOGY AND GENOMIC MEDICINE Performing Organization Address City/[facility] Centercode Phone Number [facility] [place] [address] PATHOLOGY AND GENOMIC MEDICINE * Type and screen (07/06/2018 5:20 PM CDT) ABO grouping O [facility] DEPARTMENT OF PATHOLOGY AND GENOMIC MEDICINE Rh type POS [facility] DEPARTMENT OF PATHOLOGY AND GENOMIC MEDICINE Antibody screen (gel) NEG [facility] DEPARTMENT OF PATHOLOGY AND GENOMIC MEDICINE Specimen Blood Performing Organization Address City/[facility]/Zipcode Phone Number [facility] [place] [address] PATHOLOGY AND GENOMIC MEDICINE * Lipase level (07/06/2018 5:20 PM CDT) Lipase 22 13 - 60 U/L [facility] DEPARTMENT OF PATHOLOGY AND GENOMIC MEDICINE Specimen Plasma specimen Performing Organization Address City/[facility] Centercode Phone Number [facility] [place] [address] PATHOLOGY AND GENOMIC MEDICINE * Creatinine level (05/20/2018 10:31 AM CDT) Creatinine 0.82 0.50 - 0.99 mg/dL [facility] Comment: [employer] For patients >49 years of age, the reference limit for Creatinine is approximately 13% higher for people identified as -[place]. EGFR Non-Afr. [place] 75 > OR=60 mL/min/1.73m2 [facility] [employer] EGFR 87 > OR=60 mL/min/1.73m2 [facility] Specimen Blood Resulting Agency Comment Performing Organization Information: Site ID: [id number] Name: [facility] Address: [address] [place] [address] Director: Danelle Mujica Performing Organization Address City/State/Zipcode Phone Number TAWANDA [employer] [address] [place] [address] after 09/22/2017 Insurance Payer Benefit Subscriber ID Type Phone Address Plan / Group MEDICARE MEDICARE xxxxxxxxxxx Medicare [place], [place] PART A AND B ([place]) [place] [address] Advance Directives Patient has advance care planning documents on file. For more information, tiffany onofre contact: Elías Fletcher [address] [place] [address]
--- OUTSIDE RECORDS SUMMARY | 2018-09-23 00:21 | XMS REPORT | CCD ---
Author Author Auto Generated Organization [facility] Address Unknown Phone Unavailable Care Team Providers Care Chucker Name Role Phone Narayan Meeks RP Allergies, Adverse Reactions, Alerts Substance Reaction Status codeine Active NKFA Active penicillins Active Problem List Condition Effective Dates Status Constipation Active Hyperlipidemia Active Renal mass Active Medications Medication Instructions Start Date End Date Status aspirin 325 mg, PO, PRN, Substitution 07/19/2013 Ordered Allowed [place] 5/325 oral 1 tab, Route: PO, Drug Form: TAB, 07/20/2013 07/20/2013 Discontinued tablet Dosing Weight 95.455, kg, Q4H, PRN Pain, Start date: 07/20/13 10:22:00, Duration: 30 day, Stop date: 08/19/13 10:21:00(Same as: [place] 325/5) Do not exceed 4gm/day of acetaminophen. ibuprofen 800 mg, 1 tab, Route: PO, Drug 07/20/2013 07/20/2013 Completed form: TAB, ONCE, Dosing Weight 95.455, kg, PRN as needed for pain, Start date: 07/20/13 13:53:00(Same as: Motrin)"Do Not Crush" Take with food. ibuprofen 200 mg, PO, PRN, Substitution 07/19/2013 Ordered Allowed Vital Signs Most recent to oldest [Reference Range]: 1 Height 160.02 cm (07/16/2013 12:13:00) Weight 95.455 kg (07/16/2013 12:13:00) Results HEMATOLOGY Most recent to oldest [Reference Range]: 1 WBC [3.7-10.4 K/CMM] 5.7 K/CMM (07/20/2013 09:24:23) RBC [4.20-5.40 M/CMM] 4.23 M/CMM (07/20/2013 09:24:23) Hgb [12.0-16.0 g/dL] 12.5 g/dL (07/20/2013:24:23) Hct [36.0-48.0 %] 37.0 % (07/20/2013::) MCV [81.0-99.0 fL] 87.4 fL (07/20/2013:24:) MCH [27.0-31.0 pg] 29.6 pg (07/20/2013:24:) MCHC [32.0-36.0 g/dL] 33.8 g/dL (07/20/2013:24:23) RDW [11.5-14.5 %] 12.9 % (07/20/2013::) Platelet [133-450 K/CMM] 296 K/CMM (07/20/2013:24:23) MPV [7.4-10.4 fL] 8.0 fL (07/20/2013::) Segs [45.0-75.0 %] 59.3 % (07/20/2013::) Lymphocytes [20.0-40.0 %] 28.8 % (07/20/2013:24:23) Monocytes [2.0-12.0 %] 10.1 % (07/20/2013::) Eosinophils [0.0-4.0 %] 1.4 % (07/20/2013::) Basophils [0.0-1.0 %] 0.4 % (07/20/2013:24:) Segs-Bands # [1.5-8.1 K/CMM] 3.4 K/CMM (07/20/2013:24:23) Lymphocytes # [1.0-5.5 K/CMM] 1.6 K/CMM (07/20/2013:24:23) Monocytes # [0.0-0.8 K/CMM] 0.6 K/CMM (07/20/2013:24:23) Eosinophils # [0.0-0.5 K/CMM] 0.1 K/CMM (07/20/2013 09:24:23) Basophils # [0.0-0.2 K/CMM] 0.0 K/CMM (07/20/2013 09:24:23) Procedures Procedures Date Related Diagnosis Breast augmentation History of - myomectomy Repair of hernia of abdominal wall Suspension of bladder
--- OUTSIDE RECORDS SUMMARY | 2018-09-23 00:21 | XMS REPORT | Continuity of Care Document ---
Author Author [facility] Organization Interface Address Unknown Phone Unavailable Problems Problem Status Onset Date Classification Date Reported Comments Source LEFT RENAL MASS Active 07/26/[address] [facility] ROSE - LEFT LOWER POLE MASS/CT (W/ USG) BX Active 07/15/[address] [facility] Constipation Active Problem 08/30/[address] [facility] Hyperlipidemia Active Problem 08/30/[address] [facility] Renal mass Active Problem 08/30/[address] [facility] ADMINISTRTVE ENCOUNT NOS Active [facility] Medications Medication Details Route Status Patient Instructions Ordering Provider Order Date Source methocarbamol 500 mg oral tablet 500 mg=1 tab, PO, TID, # 30 tab, 0 Refill(s), called to pharmacy Active [facility] 08/28/[address] [facility] ibuprofen 800 mg oral tablet 800 mg=1 tab, PO, TID, Pain, # 100 tab, 0 Refill(s), called to pharmacy Active [facility] 08/28/[address] [facility] Tylenol with Codeine #3 oral tablet 1 tab, PO, TID, Pain, # 30 tab, 0 Refill(s), called to pharmacy Active [facility] 08/28/[address] [facility] methocarbamol 500 mg, 1 tab, Route: PO, Drug form: TAB, TID, Dosing Weight 97.727, kg, Start date: 08/28/13 9:00:00, Duration: 30 day, Stop date: 09/26/13 17:00:00(Same as:Robaxin) Inactive [facility] 08/28/[address] [facility] Motrin 800 mg, 1 tab, Route: PO, Drug form: TAB, TID, Dosing Weight 97.727, kg, PRN Pain, Start date: 08/28/13 5:25:00, Duration: 30 day, Stop date: 09/27/13 5:24:00(Same as: Motrin) "Do Not Crush" Take with food. Inactive Delphine 08/28/[address] [facility] Dilaudid 1 mg, 0.5 mL, Route: IVP, Drug form: INJ, Q4H, PRN Pain Score 6-10, Start date: 08/27/13 21:49:00, Duration: 30 day, Stop date: 09/26/13 21:48:00(Same as: Dilaudid) No Longer Active [facility] 08/28/[address] [facility] Cipro 400 mg, 200 mL, Route: IVPB, Drug form: INJ, Q12H, Dosing Weight 97.727, kg, Start date: 08/26/13 7:30:00, Duration: 30 day, Stop date: 09/24/13 19:30:00Do not refrigerate Inactive [facility] 08/26/[address] [facility] enoxaparin 40 mg, 0.4 mL, Route: SUB-Q, Drug form: INJ, Daily, Dosing Weight 97.727, kg, Start date: 08/25/13 23:00:00, Duration: 30 day, Stop date: 09/23/13 23:00:00(Same as: Lovenox) No Longer Active [facility] 08/26/[address] [facility] fluconazole 100 mg, 1 tab, Route: PO, Drug form: TAB, [id number], Dosing Weight 97.727, kg, Start date: 08/25/13 22:00:00, Duration: 30 day, Stop date: 09/23/13 22:00:00(Same as: Diflucan) No Longer Active [facility] 08/26/[address] [facility] Tylenol with Codeine #3 oral tablet 1 tab, Route: PO, Drug Form: TAB, Dosing Weight 97.727, kg, Q4H, PRN Pain, Start date: 08/25/13 21:31:00, Duration: 30 day, Stop date: 09/24/13 21:30:00Do not exceed 4gm/day of acetaminophen. (Same as: Tylenol with Codeine # 3) No Longer Active [facility] 08/26/[address] [facility] famotidine 20 mg, 1 tab, Route: PO, Drug form: TAB, Q12H, Dosing Weight 97.727, kg, Start date: 08/25/13 21:00:00, Duration: 30 day, Stop date: 09/24/13 9:00:00(Same as: Pepcid) No Longer Active [facility] 08/26/[address] [facility] ciprofloxacin (SCIP) 400 mg, 200 mL, Route: IVPB, Drug form: INJ, Q12H, Dosing Weight 97.727, kg, Start date: 08/25/13 20:00:00, Duration: 1 doses or times, Stop date: 08/25/13 20:00:00Do not refrigerate Inactive [facility] 08/26/[address] [facility] docusate sodium 100 mg oral capsule 100 mg, 1 cap, Route: PO, Drug form: CAP, BID, Dosing Weight 97.727, kg, Start date: 08/25/13 17:00:00, Duration: 30 day, Stop date: 09/24/13 9:00:00(Same as: Colace) (Do Not Crush) No Longer Active [facility] 08/25/[address] [facility] influenza virus vaccine, inactivated 0.5 mL, Route: IM, Drug Form: SUSP, ONCALL, Start date: 08/25/13 12:24:07, Stop date: 09/24/13 12:19:07(Same as: Fluzone) No Longer Active SYSTEM 08/25/[address] [facility] Restoril 7.5 mg, 1 cap, Route: PO, Drug form: CAP, Bedtime, PRN Sleep, Start date: 08/25/13 10:23:00, Duration: 30 day, Stop date: 09/24/13 10:22:00(Same As: Restoril) No Longer Active Meeks 08/25/[address] [facility] acetaminophen 650 mg, 2 tab, Route: PO, Drug form: TAB, Q4H, Dosing Weight 97.727, kg, PRN Pain 1-3/Temp > 100.4 F, Start date: 08/25/13 9:47:00, Duration: 30 day, Stop date: 09/24/13 9:46:00Do not exceed 4 gm/day. (Same as: Tylenol) No Longer Active [facility] 08/25/[address] [facility] Lactated Ringers Injection IV 1,000 mL 1,000 mL, Rate: 30 ml/hr, Infuse over: 33.3 hr, Route: IV, Dosing Weight 97.727 kg, Total Volume: 1,000, Start date: 08/25/13 9:47:00, Stop date: 09/24/13 9:46:00 No Longer Active [facility] 08/25/[address] [facility] acetaminophen-hydrocodone 325 mg-10 mg oral tablet 1 tab, Route: PO, Drug Form: TAB, Dosing Weight 97.727, kg, Q4H, PRN Pain Score 4-6, Start date: 08/25/13 9:47:00, Duration: 30 day, Stop date: 09/24/13 9:46:00Do not exceed 4gm/day of acetaminophen. (Same as: [place] 325/10) Inactive [facility] 08/25/[address] [facility] Al hydroxide/Mg hydroxide/simethicone 200 mg-200 mg-20 mg/5 mL oral suspension 30 mL, Route: PO, Drug Form: SUSP, Dosing Weight 97.727, kg, Q4H, PRN Indigestion, Start date: 08/25/13 9:47:00, Duration: 30 day, Stop date: 09/24/13 9:46:00(aluminum hydroxide-magnesium hyd-simethicone 586-130-62pr/5ml 30 ml ud JACQUELINE) No Longer Active [facility] 08/25/[address] [facility] morphine Sulfate 2 mg, 1 mL, Route: IVP, Drug form: INJ, Q3H, Dosing Weight 97.727, kg, PRN Pain Score 1-3, Start date: 08/25/13 9:47:00, Duration: 30 day, Stop date: 09/24/13 9:46:00(Same as:MORPhine Sulfate) No Longer Active [facility] 08/25/[address] [facility] hydromorphone 1 mg, 1 mL, Route: IVP, Drug form: INJ, Q4H, Dosing Weight 97.727, kg, PRN Pain Score 7-10, Start date: 08/25/13 9:47:00, Duration: 30 day, Stop date: 09/24/13 9:46:00Same as: Dilaudid No Longer Active [facility] 08/25/[address] [facility] zolpidem 5 mg, Route: PO, Drug form: TAB, Bedtime, Dosing Weight 97.727, kg, PRN Insomnia, Start date: 08/25/13 9:47:00, Duration: 30 day, Stop date: 09/24/13 9:46:00 Inactive [facility] 08/25/[address] [facility] diphenhydrAMINE 25 mg, 1 cap, Route: PO, Drug form: CAP, Bedtime, Dosing Weight 97.727, kg, PRN Insomnia, Start date: 08/25/13 9:47:00, Duration: 30 day, Stop date: 09/24/13 9:46:00(Same as: Benadryl) No Longer Active [facility] 08/25/[address] [facility] promethazine + Sodium Chloride 0.9% IV 50 mL 12.5 mg, 0.5 mL, Route: IVPB, Q4H, Dosing Weight 97.727, kg, PRN Nausea & Vomiting, Start date: 08/25/13 9:47:00, Duration: 30 day, Stop date: 09/24/13 9:46:00Do not give IV push. (Same as: Phenergan) No Longer Active [facility] 08/25/[address] [facility] ondansetron 4 mg, 2 mL, Route: IVP, Drug form: INJ, Q6H, Dosing Weight 97.727, kg, PRN Nausea & Vomiting, Start date: 08/25/13 9:47:00, Duration: 30 day, Stop date: 09/24/13 9:46:00(Same as: Zofran) No Longer Active [facility] 08/25/[address] [facility] Dulcolax Laxative 5 mg, 1 tab, Route: PO, Drug form: ECTAB, Q24H, Dosing Weight 97.727, kg, PRN Constipation, Start date: 08/25/13 9:47:00, Duration: 30 day, Stop date: 09/24/13 9:46:00(Same As: Dulcolax, Correctol) (Do Not Crush) "Do Not Crush" No Longer Active [facility] 08/25/[address] [facility] naloxone 0.1 mg, 0.25 mL, Route: IVP, Drug form: INJ, Q2MIN, Dosing Weight 97.727, kg, PRN Narcotic Reversal, Start date: 08/25/13 9:08:00, Duration: 8 doses or times, Stop date: Limited # of timesSame as Narcan Inactive Clement-Desirae 08/25/[address] [facility] diphenhydrAMINE 12.5 mg, 0.25 mL, Route: IVP, Drug form: INJ, Q6H, Dosing Weight 97.727, kg, PRN Itching, Start date: 08/25/13 9:07:00, Duration: 30 day, Stop date: 09/24/13 9:06:00(Same as: Benadryl) Inactive [facility] 08/25/[address] [facility] ondansetron 4 mg, 2 mL, Route: IVP, Drug form: INJ, ONCE, Dosing Weight 97.727, kg, PRN Nausea & Vomiting, Start date: 08/25/13 9:07:00(Same as: Zofran) Inactive [facility] 08/25/[address] [facility] Lactated Ringers Injection IV 1,000 mL 1,000 mL, Rate: 125 ml/hr, Infuse over: 8 hr, Route: IV, Dosing Weight 97.727 kg, Total Volume: 1,000, Start date: 08/25/13 9:07:00, Duration: 30 day, Stop date: 09/24/13 9:06:00 Inactive [facility] 08/25/[address] [facility] hydromorphone 0.5 mg, 0.25 mL, Route: IVP, Drug form: INJ, Q5Min, Dosing Weight 97.727, kg, PRN Pain Score 7-10, Start date: 08/25/13 9:07:00, Duration: 4 doses or times, Stop date: Limited # of times(Same as: Dil audid) Inactive [facility] 08/25/[address] [facility] morphine Sulfate 2 mg, 0.2 mL, Route: IVP, Drug form: INJ, Q5Min, Dosing Weight 97.727, kg, PRN Pain Score 4-6, Start date: 08/25/13 9:07:00, Duration: 5 doses or times, Stop date: Limited # of times(Same as:MORPhine Sulfate) Inactive [facility] 08/25/[address] [facility] ephedrine 5 mg, 0.1 mL, Route: IVP, Drug form: INJ, Q5Min, Dosing Weight 97.727, kg, PRN Low Blood Pressure, Start date: 08/25/13 9:07:00, Duration: 30 day, Stop date: 09/24/13 9:06:00(Same as: Ephedrine Sulfate) Inactive [facility] 08/25/[address] [facility] flumazenil 0.2 mg, 2 mL, Route: IVP, Drug form: INJ, PRN, Dosing Weight 97.727, kg, PRN Benzodiazepine Reversal, Initial dose, Start date: 08/25/13 9:07:00, Duration: 30 day, Stop date: 09/24/13 9:06:00(Same as: Romazicon) Inactive [facility] 08/25/[address] [facility] naloxone 0.04 mg, 0.1 mL, Route: IVP, Drug form: INJ, Q2MIN, Dosing Weight 97.727, kg, PRN Narcotic Reversal, Start date: 08/25/13 9:07:00, Duration: 8 doses or times, Stop date: Limited # of timesSame as Narcan Inactive [facility] 08/25/[address] [facility] naloxone 0.1 mg, 0.25 mL, Route: IVP, Drug form: INJ, Q2MIN, Dosing Weight 97.727, kg, PRN Narcotic Reversal, Start date: 08/25/13 9:06:00, Duration: 8 doses or times, Stop date: Limited # of timesSame as Narcan Inactive [facility] 08/25/[address] [facility] ciprofloxacin 400 mg/200 mL intravenous solution 400 mg, Route: IVPB, ONCE, Dosing Weight 97.727, kg, Start date: 08/25/13 7:34:00, Stop date: 08/25/13 7:34:00 Inactive Meeks 08/25/[address] [facility] ibuprofen 800 mg, 1 tab, Route: PO, Drug form: TAB, ONCE, Dosing Weight 95.455, kg, PRN as needed for pain, Start date: 07/20/13 13:53:00(Same as: Motrin) "Do Not Crush" Take with food. Inactive Michaela 07/20/[address] [facility] [place] 5/325 oral tablet 1 tab, Route: PO, Drug Form: TAB, Dosing Weight 95.455, kg, Q4H, PRN Pain, Start date: 07/20/13 10:22:00, Duration: 30 day, Stop date: 08/19/13 10:21:00(Same as: [place] 325/5) Do not exceed 4gm/day of acetaminophen. Inactive Jennings 07/20/[address] [facility] ibuprofen 200 mg, PO, PRN, Substitution Allowed Active 07/19/[address] [facility] aspirin 325 mg, PO, PRN, Substitution Allowed Active 07/19/[address] [facility] Allergies, Adverse Reactions, Alerts Substance Category Reaction Severity Reaction type Status Date Reported Comments Source codeine drug allergy Allergy [facility] NKFA drug allergy Allergy [facility] penicillins drug allergy Allergy [facility] Vicodin drug allergy Allergy [facility] Immunizations Immunization Date Given Site Status Last Updated Comments Source influenza virus vaccine, inactivated 08/26/[address] [facility] Results Order Name Results Value Reference Range Date Interpretation Comments Source HEMATOLOGY Hgb 12.0 g/dL 12.0 - 16.0 08/28/[address] [facility] CHEMISTRY B/C Ratio 14 6 - 25 08/26/[address] [facility] CHEMISTRY Globulin 3.3 g/dL 2.0 - 4.0 08/26/[address] [facility] CHEMISTRY A/G Ratio 0.8 0.7 - 1.6 08/26/[address] [facility] CHEMISTRY AGAP 13.6 meq/L 10.0 - 20.0 08/26/[address] [facility] CHEMISTRY eGFR 61 mL/min/1.73m2 08/26/2013 1Result Comment: The eGFR is calculated using the CKD-EPI formula. In most young, healthy individuals the eGFR will be >90 mL/min/1.73m2. The eGFR declines with age. An eGFR of 60-89 may be normal in some populations, particularly the elderly, for whom the CKD-EPI formula has not been extensively validated. Use of the eGFR is not recommended in the following populations: Individuals with unstable creatinine concentrations, including patients and those with serious co-morbid conditions. Patients with extremes in muscle mass or diet. The data above are obtained from the National Kidney Disease Education Program (NKDEP) which additionally recommends that when the eGFR is used in patients with extremes of body mass index for purposes of drug dosing, the eGFR should be multiplied by the estimated BMI. [facility] CHEMISTRY ASPARTATE TRANSAMINASE 27 unit/L 0 - 37 08/26/[address] [facility] CHEMISTRY Bili Total 0.5 mg/dL 0.2 - 1.3 08/26/[address] [facility] CHEMISTRY ALANINE AMINOTRANSFERASE 32 unit/L 0 - 65 08/26/[address] [facility] CHEMISTRY Alk Phos 87 unit/L 39 - 136 08/26/[address] [facility] CHEMISTRY Potassium Lvl 3.6 meq/L 3.5 - 5.1 08/26/[address] [facility] CHEMISTRY BUN 14 mg/dL 7 - 22 08/26/[address] [facility] CHEMISTRY Sodium Lvl 139 meq/L 135 - 145 08/26/[address] [facility] CHEMISTRY Glucose Lvl 127 mg/dL 70 - 99 08/26/2013 HI 3Interpretive Data: Adult reference range values reflect the clinical guidelines of the [place] [employer]. [facility] CHEMISTRY Creatinine Lvl 1.0 mg/dL 0.5 - 1.4 08/26/[address] [facility] CHEMISTRY CO2 23 meq/L 24 - 32 08/26/[address] [facility] CHEMISTRY Calcium Lvl 8.2 mg/dL 8.5 - 10.5 08/26/2013 [facility] CHEMISTRY Total Protein 6.1 g/dL 6.4 - 8.4 08/26/2013 [facility] CHEMISTRY Albumin Lvl 2.8 g/dL 3.5 - 5.0 08/26/2013 [facility] CHEMISTRY Chloride Lvl 106 meq/L 95 - 109 08/26/[address] [facility] HEMATOLOGY Basophils 0.1 % 0.0 - 1.0 08/26/2013 [facility] HEMATOLOGY Segs 78.7 % 45.0 - 75.0 08/26/[address] [facility] HEMATOLOGY Eosinophils 0.0 % 0.0 - 4.0 08/26/2013 [facility] HEMATOLOGY Lymphocytes 14.1 % 20.0 - 40.0 08/26/2013 [facility] HEMATOLOGY Monocytes 7.1 % 2.0 - 12.0 08/26/[address] [facility] HEMATOLOGY Lymphocytes # 1.2 K/CMM 1.0 - 5.5 08/26/2013 [facility] HEMATOLOGY Basophils # 0.0 K/CMM 0.0 - 0.2 08/26/2013 [facility] HEMATOLOGY Eosinophils # 0.0 K/CMM 0.0 - 0.5 08/26/2013 [facility] HEMATOLOGY Monocytes # 0.6 K/CMM 0.0 - 0.8 08/26/[address] [facility] HEMATOLOGY Segs-Bands # 6.7 K/CMM 1.5 - 8.1 08/26/[address] [facility] HEMATOLOGY MCV 86.2 fL 81.0 - 99.0 08/26/[address] [facility] HEMATOLOGY MCHC 33.9 g/dL 32.0 - 36.0 08/26/[address] [facility] HEMATOLOGY MCH 29.2 pg 27.0 - 31.0 08/26/[address] [facility] HEMATOLOGY Platelet 229 K/CMM 133 - 450 08/26/[address] [facility] HEMATOLOGY RDW 13.5 % 11.5 - 14.5 08/26/[address] [facility] HEMATOLOGY MPV 8.6 fL 7.4 - 10.4 08/26/[address] [facility] HEMATOLOGY Hgb 10.7 g/dL 12.0 - 16.0 08/26/[address] [facility] HEMATOLOGY Hct 31.4 % 36.0 - 48.0 08/26/[address] [facility] HEMATOLOGY RBC X 10x6 3.65 M/CMM 4.20 - 5.40 08/26/[address] [facility] HEMATOLOGY WBC X 10x3 8.5 K/CMM 3.7 - 10.4 08/26/[address] [facility] HEMATOLOGY aPTT 36.6 s 22.9 - 35.8 08/26/2013 [place] 5Interpretive Data: Heparin Therapeutic Range: 57 - [address] [facility] HEMATOLOGY PROTIME 15.0 s 12.0 - 14.7 08/26/[address] [facility] HEMATOLOGY INR 1.19 0.85 - 1.17 08/26/2013 [place] 4Interpretive Data: RECOMMENDED RANGES FOR PROTIME INR: 2.0-3.0 for most medical and surgical thromboembolic states. 2.5-3.5 for artificial heart valves and recurrent embolism. INR SHOULD BE USED ONLY FOR PATIENTS ON STABLE ANTICOAGULANT THERAPY. [facility] CHEMISTRY eGFR 69 mL/min/1.73m2 08/25/2013 2Result Comment: The eGFR is calculated using the CKD-EPI formula. In most young, healthy individuals the eGFR will be >90 mL/min/1.73m2. The eGFR declines with age. An eGFR of 60-89 may be normal in some populations, particularly the elderly, for whom the CKD-EPI formula has not been extensively validated. Use of the eGFR is not recommended in the following populations: Individuals with unstable creatinine concentrations, including patients and those with serious co-morbid conditions. Patients with extremes in muscle mass or diet. The data above are obtained from the National Kidney Disease Education Program (NKDEP) which additionally recommends that when the eGFR is used in patients with extremes of body mass index for purposes of drug dosing, the eGFR should be multiplied by the estimated BMI. [facility] CHEMISTRY Creatinine Lvl 0.9 mg/dL 0.5 - 1.4 08/25/[address] [facility] HEMATOLOGY Platelet 263 K/CMM 133 - 450 08/25/[address] [facility] HEMATOLOGY Hgb 13.1 g/dL 12.0 - 16.0 08/24/[address] [facility] HEMATOLOGY Hct 39.2 % 36.0 - 48.0 08/24/[address] [facility] HEMATOLOGY Basophils # 0.0 K/CMM 0.0 - 0.2 07/20/[address] [facility] HEMATOLOGY Basophils 0.4 % 0.0 - 1.0 07/20/[address] [facility] HEMATOLOGY Eosinophils # 0.1 K/CMM 0.0 - 0.5 07/20/[address] [facility] HEMATOLOGY Monocytes # 0.6 K/CMM 0.0 - 0.8 07/20/[address] [facility] HEMATOLOGY Lymphocytes # 1.6 K/CMM 1.0 - 5.5 07/20/2013 [facility] HEMATOLOGY Segs-Bands # 3.4 K/CMM 1.5 - 8.1 07/20/[address] [facility] HEMATOLOGY Segs 59.3 % 45.0 - 75.0 07/20/2013 [facility] HEMATOLOGY Eosinophils 1.4 % 0.0 - 4.0 07/20/[address] [facility] HEMATOLOGY Monocytes 10.1 % 2.0 - 12.0 07/20/[address] [facility] HEMATOLOGY Lymphocytes 28.8 % 20.0 - 40.0 07/20/[address] [facility] HEMATOLOGY RBC X 10x6 4.23 M/CMM 4.20 - 5.40 07/20/[address] [facility] HEMATOLOGY Hgb 12.5 g/dL 12.0 - 16.0 07/20/[address] [facility] HEMATOLOGY Platelet 296 K/CMM 133 - 450 07/20/[address] [facility] HEMATOLOGY MCHC 33.8 g/dL 32.0 - 36.0 07/20/[address] [facility] HEMATOLOGY RDW 12.9 % 11.5 - 14.5 07/20/[address] [facility] HEMATOLOGY Hct 37.0 % 36.0 - 48.0 07/20/[address] [facility] HEMATOLOGY MCH 29.6 pg 27.0 - 31.0 07/20/[address] [facility] HEMATOLOGY MCV 87.4 fL 81.0 - 99.0 07/20/[address] [facility] HEMATOLOGY MPV 8.0 fL 7.4 - 10.4 07/20/[address] [facility] HEMATOLOGY WBC X 10x3 5.7 K/CMM 3.7 - 10.4 07/20/[address] [facility] Biopsy kidney VR Biopsy kidney VR Ultrasound and CT guided left renal mass biopsy CLINICAL INFORMATION: Solid partially exophytic left inferior pole renal mass Consent: The procedure, risks, benefits and alternatives were discussed with the patient and written informed consent was obtained. Possible risks and complications including hematoma, infection and nondiagnostic sampling were discussed. SEDATION: Local Sedation only PROCEDURE: The patient was placed in the prone position and the left flank region was prepped and draped in usual sterile fashion. After localizing ultrasound, 1% lidocaine was used to anesthetize the skin. A 17-gauge guide needle was advanced into the solid exophytic inferior left renal pole mass under ultrasound guidance with CT images obtained to confirm placement and 3 samples were obtained using an 18-gauge core biopsy needle through the guide needle. Samples were sent for cytopathology and flow cytometry examination. Two Gelfoam pledgets were then instilled through the guide needle for hemostasis. After removing the needles a post procedure CT was obtained and confirmed absence of any gross hematoma. The patient tolerated the procedure well and there were no immediate complications. IMPRESSION: Ultrasound and CT guided left inferior pole renal mass biopsy as described above. 07/20/2013 - - Read by: Ronaldo Jennings Dictated Date/time: 07/20/13 12:12 Electronically Signed by: Ronaldo Jennings MD 07/20/13 12:16 FINAL REPORT [facility] Vital Signs Vital Sign Value Date Comments Source Temperature Oral (F) 98.1 F 08/28/[address] [facility] Respitory Rate 18 08/28/[address] [facility] Heart Rate 72 08/28/[address] [facility] Diastolic (mm Hg) 77 08/28/[address] [facility] Systolic (mm Hg) 135 08/28/[address] [facility] Temperature Oral (F) 98.4 F 08/28/[address] [facility] Heart Rate 75 08/28/[address] [facility] Respitory Rate 16 08/28/[address] [facility] Diastolic (mm Hg) 69 08/28/[address] [facility] Systolic (mm Hg) 115 08/28/[address] [facility] Diastolic (mm Hg) 75 08/28/[address] [facility] Systolic (mm Hg) 116 08/28/[address] [facility] Temperature Oral (F) 98.2 F 08/28/[address] [facility] Heart Rate 68 08/28/[address] [facility] Respitory Rate 16 08/28/[address] [facility] Height 160.02 cm 08/24/[address] [facility] Weight 97.727 08/24/[address] [facility] Weight 95.455 07/16/[address] [facility] Height 160.02 cm 07/16/[address] [facility] Encounters Location Location Details Encounter Type Encounter Number Reason For Visit Attending Provider ADM Date DC Date Status Source [facility] ROSE [id number] MARKUS MEEKS 07/20/2013 07/20/2013 Active [facility] Inpatient [id number] MARKUS MEEKS 08/25/2013 08/28/[address] [facility] Procedures Procedure Code Date Perfomer Comments Source Breast augmentation [id number] [facility] History of - myomectomy [id number] [facility] Repair of hernia of abdominal wall [id number] [facility] Suspension of bladder [id number] [facility]
--- OUTSIDE RECORDS SUMMARY | 2018-09-23 00:21 | XMS REPORT | CCD ---
Author Author Auto Generated Organization [facility] Address Unknown Phone Unavailable Care Team Providers Care Fruit Sorter Name Role Phone Narayan Meeks RP Allergies, Adverse Reactions, Alerts Substance Reaction Status codeine Active NKFA Active penicillins Active Problem List Condition Effective Dates Status Constipation Active Hyperlipidemia Active Renal mass Active Medications Medication Instructions Start Date End Date Status aspirin 325 mg, PO, PRN, Substitution 07/19/2013 Ordered Allowed [place] 5/325 oral 1 tab, Route: PO, Drug Form: TAB, 07/20/2013 07/20/2013 Discontinued tablet Dosing Weight 95.455, kg, Q4H, PRN Pain, Start date: 07/20/13 10:22:00, Duration: 30 day, Stop date: 08/19/13 10:21:00(Same as: [place] 325/5) Do not exceed 4gm/day of acetaminophen. [...]
--- OUTSIDE RECORDS SUMMARY | 2018-09-23 00:21 | XMS REPORT | CCD ---
Author Author Auto Generated Organization [facility] Address Unknown Phone Unavailable Care Team Providers Care Eligibility Specialist Name Role Phone Narayan Meeks RP Allergies, Adverse Reactions, Alerts Substance Reaction Status codeine Active NKFA Active penicillins Active Problem List Condition Effective Dates Status Constipation Active Hyperlipidemia Active Renal mass Active Medications Medication Instructions Start Date End Date Status aspirin 325 mg, PO, PRN, Substitution 07/19/2013 Ordered Allowed [place] 5/325 oral 1 tab, Route: PO, Drug Form: TAB, 07/20/2013 07/20/2013 Discontinued tablet Dosing Weight 95.455, kg, Q4H, PRN Pain, Start date: 07/20/13 10:22:00, Duration: 30 day, Stop date: 08/19/13 10:21:00(Same as: [place] 325/5) Do not exceed 4gm/day of acetaminophen. [...] % (07/20/2013::) MCV [81.0-99.0 fL] 87.4 fL (07/20/2013:24:23) MCH [27.0-31.0 pg] 29.6 pg (07/20/2013:24:) MCHC [32.0-36.0 g/dL] 33.8 g/dL (07/20/2013:24:23) RDW [11.5-14.5 %] 12.9 % (07/20/2013::) Platelet [133-450 K/CMM] 296 K/CMM (07/20/2013:24:23) MPV [7.4-10.4 fL] 8.0 fL (07/20/2013::) Segs [45.0-75.0 %] 59.3 % (07/20/2013::) Lymphocytes [20.0-40.0 %] 28.8 % (07/20/2013:24:) Monocytes [2.0-12.0 %] 10.1 % (07/20/2013::) Eosinophils [0.0-4.0 %] 1.4 % (07/20/2013::) Basophils [0.0-1.0 %] 0.4 % (07/20/2013::) Segs-Bands # [1.5-8.1 K/CMM] 3.4 K/CMM (07/20/2013:24:23) Lymphocytes # [1.0-5.5 K/CMM] 1.6 K/CMM (07/20/2013:24:) Monocytes # [0.0-0.8 K/CMM] 0.6 K/CMM (07/20/2013:24:23) Eosinophils # [0.0-0.5 K/CMM] 0.1 K/CMM (07/20/2013 09:24:23) Basophils # [0.0-0.2 K/CMM] 0.0 K/CMM (07/20/2013 09:24:23) Procedures Procedures Date Related Diagnosis Breast augmentation History of - myomectomy Repair of hernia of abdominal wall Suspension of bladder
--- OUTSIDE RECORDS SUMMARY | 2018-09-23 00:21 | XMS REPORT | CCD ---
Author Author Auto Generated Organization [facility] Address Unknown Phone Unavailable Care Team Providers Care Costing Analyst Name Role Phone Narayan Meeks RP Allergies, Adverse Reactions, Alerts Substance Reaction Status codeine Active NKFA Active penicillins Active Problem List Condition Effective Dates Status Constipation Active Hyperlipidemia Active Renal mass Active Medications Medication Instructions Start Date End Date Status aspirin 325 mg, PO, PRN, Substitution 07/19/2013 Ordered Allowed [place] 5/325 oral 1 tab, Route: PO, Drug Form: TAB, 07/20/2013 07/20/2013 Discontinued tablet Dosing Weight 95.455, kg, Q4H, PRN Pain, Start date: 07/20/13 10:22:00, Duration: 30 day, Stop date: 08/19/13 10:21:00(Same as: [place] 325/5) Do not exceed 4gm/day of acetaminophen. [...]
--- OUTSIDE RECORDS SUMMARY | 2018-09-23 00:21 | XMS REPORT | CCD ---
Author Author Auto Generated Organization [facility] Address Unknown Phone Unavailable Care Team Providers Care Industrial Health And Safety Professor Name Role Phone Narayan Meeks RP Allergies, Adverse Reactions, Alerts Substance Reaction Status codeine Active NKFA Active penicillins Active Problem List Condition Effective Dates Status Constipation Active Hyperlipidemia Active Renal mass Active Medications Medication Instructions Start Date End Date Status aspirin 325 mg, PO, PRN, Substitution 07/19/2013 Ordered Allowed [place] 5/325 oral 1 tab, Route: PO, Drug Form: TAB, 07/20/2013 07/20/2013 Discontinued tablet Dosing Weight 95.455, kg, Q4H, PRN Pain, Start date: 07/20/13 10:22:00, Duration: 30 day, Stop date: 08/19/13 10:21:00(Same as: [place] 325/5) Do not exceed 4gm/day of acetaminophen. [...]
--- OUTSIDE RECORDS SUMMARY | 2018-09-23 00:21 | XMS REPORT | CCD ---
Author Author Auto Generated Organization [facility] Address Unknown Phone Unavailable Care Team Providers Care Airplane Cleaner Name Role Phone Narayan Meeks RP Allergies, Adverse Reactions, Alerts Substance Reaction Status NKFA Active penicillins Active Vicodin Active Problem List Condition Effective Dates Status Constipation Active Hyperlipidemia Active Renal mass Active Medications Medication Instructions Start Date End Date Status Restoril 7.5 mg, 1 cap, Route: PO, Drug 08/25/2013 08/28/2013 Discontinued form: CAP, Bedtime, PRN Sleep, Start date: 08/25/13 10:23:00, Duration: 30 day, Stop date: 09/24/13 10:22:00(Same As: Restoril) Cipro 400 mg, 200 mL, Route: IVPB, Drug 08/26/2013 08/26/2013 Discontinued form: INJ, Q12H, Dosing Weight 97.727, kg, Start date: 08/26/13 7:30:00, Duration: 30 day, Stop date: 09/24/13 19:30:00Do not refrigerate acetaminophen 650 mg, 2 tab, Route: PO, Drug 08/25/2013 08/28/2013 Discontinued form: TAB, Q4H, Dosing Weight 97.727, kg, PRN Pain 1-3/Temp > 100.4 F, Start date: 08/25/13 9:47:00, Duration: 30 day, Stop date: 09/24/13 9:46:00Do not exceed 4 gm/day. (Same as: Tylenol) ciprofloxacin (SCIP) 400 mg, 200 mL, Route: IVPB, Drug 08/25/2013 08/25/2013 Completed form: INJ, Q12H, Dosing Weight 97.727, kg, Start date: 08/25/13 20:00:00, Duration: 1 doses or times, Stop date: 08/25/13 20:00:00Do not refrigerate acetaminophen 650 mg, 1 supp, Route: [place], Drug 08/25/2013 08/28/2013 Discontinued form: SUPP, Q4H, Dosing Weight 97.727, kg, PRN Pain 1-3/Temp > 100.4 F, Start date: 08/25/13 9:47:00, Duration: 30 day, Stop date: 09/24/13 9:46:00Max [id number] mg/day (4 gm/day). (Same as: Tylenol) Lactated Ringers 1,000 mL, Rate: 30 ml/hr, Infuse 08/25/2013 08/28/2013 Discontinued Injection IV 1,000 over: 33.3 hr, Route: IV, Dosing mL Weight 97.727 kg, Total Volume: 1,000, Start date: 08/25/13 9:47:00, Stop date: 09/24/13 9:46:00 famotidine 20 mg, 1 tab, Route: PO, Drug form: 08/25/2013 08/28/2013 Discontinued TAB, Q12H, Dosing Weight 97.727, kg, Start date: 08/25/13 21:00:00, Duration: 30 day, Stop date: 09/24/13 9:00:00(Same as: Pepcid) acetaminophen-hydroc 1 tab, Route: PO, Drug Form: TAB, 08/25/2013 08/25/2013 Discontinued odone 325 mg-10 mg Dosing Weight 97.727, kg, Q4H, PRN oral tablet Pain Score 4-6, Start date: 08/25/13 9:47:00, Duration: 30 day, Stop date: 09/24/13 9:46:00Do not exceed 4gm/day of acetaminophen. (Same as: [place] 325/10) Al hydroxide/Mg 30 mL, Route: PO, Drug Form: SUSP, 08/25/2013 08/28/2013 Discontinued hydroxide/simethicon Dosing Weight 97.727, kg, Q4H, PRN e 200 mg-200 mg-20 Indigestion, Start date: 08/25/13 mg/5 mL oral 9:47:00, Duration: 30 day, Stop suspension date: 09/24/13 9:46:00(aluminum hydroxide-magnesium hyd-simethicone [phone]/5ml 30 ml ud JACQUELINE) morphine Sulfate 2 mg, 1 mL, Route: IVP, Drug form: 08/25/2013 08/28/2013 Discontinued INJ, Q3H, Dosing Weight 97.727, kg, PRN Pain Score 1-3, Start date: 08/25/13 9:47:00, Duration: 30 day, Stop date: 09/24/13 9:46:00(Same as:MORPhine Sulfate) hydromorphone 1 mg, 1 mL, Route: IVP, Drug form: 08/25/2013 08/27/2013 Deleted INJ, Q4H, Dosing Weight 97.727, kg, PRN Pain Score 7-10, Start date: 08/25/13 9:47:00, Duration: 30 day, Stop date: 09/24/13 9:46:00Same as: Dilaudid zolpidem 5 mg, Route: PO, Drug form: TAB, 08/25/2013 08/25/2013 Deleted Bedtime, Dosing Weight 97.727, kg, PRN Insomnia, Start date: 08/25/13 9:47:00, Duration: 30 day, Stop date: 09/24/13 9:46:00 diphenhydrAMINE 25 mg, 1 cap, Route: PO, Drug form: 08/25/2013 08/28/2013 Discontinued CAP, Bedtime, Dosing Weight 97.727, kg, PRN Insomnia, Start date: 08/25/13 9:47:00, Duration: 30 day, Stop date: 09/24/13 9:46:00(Same as: Benadryl) promethazine + 12.5 mg, 0.5 mL, Route: IVPB, Q4H, 08/25/2013 08/28/2013 Discontinued Sodium Chloride 0.9% Dosing Weight 97.727, kg, PRN IV 50 mL Nausea & Vomiting, Start date: 08/25/13 9:47:00, Duration: 30 day, Stop date: 09/24/13 9:46:00Do not give IV push. (Same as: Phenergan) ondansetron 4 mg, 2 mL, Route: IVP, Drug form: 08/25/2013 08/28/2013 Discontinued INJ, Q6H, Dosing Weight 97.727, kg, PRN Nausea & Vomiting, Start date: 08/25/13 9:47:00, Duration: 30 day, Stop date: 09/24/13 9:46:00(Same as: Zofran) Dulcolax Laxative 5 mg, 1 tab, Route: PO, Drug form: 08/25/2013 08/28/2013 Discontinued ECTAB, Q24H, Dosing Weight 97.727, kg, PRN Constipation, Start date: 08/25/13 9:47:00, Duration: 30 day, Stop date: 09/24/13 9:46:00(Same As: Dulcolax, Correctol) (Do Not Crush) "Do Not Crush" docusate sodium 100 100 mg, 1 cap, Route: PO, Drug 08/25/2013 08/28/2013 Discontinued mg oral capsule form: CAP, BID, Dosing Weight 97.727, kg, Start date: 08/25/13 17:00:00, Duration: 30 day, Stop date: 09/24/13 9:00:00(Same as: Colace) (Do Not Crush) naloxone 0.1 mg, 0.25 mL, Route: IVP, Drug 08/25/2013 08/25/2013 Discontinued form: INJ, Q2MIN, Dosing Weight 97.727, kg, PRN Narcotic Reversal, Start date: 08/25/13 9:06:00, Duration: 8 doses or times, Stop date: Limited # of timesSame as Narcan naloxone 0.1 mg, 0.25 mL, Route: IVP, Drug 08/25/2013 08/25/2013 Discontinued form: INJ, Q2MIN, Dosing Weight 97.727, kg, PRN Narcotic Reversal, Start date: 08/25/13 9:06:00, Duration: 8 doses or times, Stop date: Limited # of timesSame as Narcan influenza virus 0.5 mL, Route: IM, Drug Form: SUSP, 08/25/2013 08/26/2013 Completed vaccine, inactivated ONCALL, Start date: 08/25/13 12:24:07, Stop date: 09/24/13 12:19:07(Same as: Fluzone) naloxone 0.1 mg, 0.25 mL, Route: IVP, Drug 08/25/2013 08/25/2013 Discontinued form: INJ, Q2MIN, Dosing Weight 97.727, kg, PRN Narcotic Reversal, Start date: 08/25/13 9:08:00, Duration: 8 doses or times, Stop date: Limited # of timesSame as Narcan naloxone 0.1 mg, 0.25 mL, Route: IVP, Drug 08/25/2013 08/25/2013 Discontinued form: INJ, Q2MIN, Dosing Weight 97.727, kg, PRN Narcotic Reversal, Start date: 08/25/13 9:08:00, Duration: 8 doses or times, Stop date: Limited # of timesSame as Narcan Motrin 800 mg, 1 tab, Route: PO, Drug 08/28/2013 08/28/2013 Discontinued form: TAB, TID, Dosing Weight 97.727, kg, PRN Pain, Start date: 08/28/13 5:25:00, Duration: 30 day, Stop date: 09/27/13 5:24:00(Same as: Motrin)"Do Not Crush" Take with food. methocarbamol 500 mg, 1 tab, Route: PO, Drug 08/28/2013 08/28/2013 Discontinued form: TAB, TID, Dosing Weight 97.727, kg, Start date: 08/28/13 9:00:00, Duration: 30 day, Stop date: 09/26/13 17:00:00(Same as:Robaxin) Dilaudid 1 mg, 0.5 mL, Route: IVP, Drug 08/27/2013 08/28/2013 Discontinued form: INJ, Q4H, PRN Pain Score 6-10, Start date: 08/27/13 21:49:00, Duration: 30 day, Stop date: 09/26/13 21:48:00(Same as: Dilaudid) methocarbamol 500 mg 500 mg=1 tab, PO, TID, # 30 tab, 0 08/28/2013 Ordered oral tablet Refill(s), called to pharmacy ibuprofen 800 mg 800 mg=1 tab, PO, TID, Pain, # 100 08/28/2013 Ordered oral tablet tab, 0 Refill(s), called to pharmacy Tylenol with Codeine 1 tab, PO, TID, Pain, # 30 tab, 0 08/28/2013 Ordered #3 oral tablet Refill(s), called to pharmacy diphenhydrAMINE 12.5 mg, 0.25 mL, Route: IVP, Drug 08/25/2013 08/25/2013 Discontinued form: INJ, Q6H, Dosing Weight 97.727, kg, PRN Itching, Start date: 08/25/13 9:07:00, Duration: 30 day, Stop date: 09/24/13 9:06:00(Same as: Benadryl) ondansetron 4 mg, 2 mL, Route: IVP, Drug form: 08/25/2013 08/25/2013 Discontinued INJ, ONCE, Dosing Weight 97.727, kg, PRN Nausea & Vomiting, Start date: 08/25/13 9:07:00(Same as: Zofran) Lactated Ringers 1,000 mL, Rate: 125 ml/hr, Infuse 08/25/2013 08/25/2013 Discontinued Injection IV 1,000 over: 8 hr, Route: IV, Dosing mL Weight 97.727 kg, Total Volume: 1,000, Start date: 08/25/13 9:07:00, Duration: 30 day, Stop date: 09/24/13 9:06:00 hydromorphone 0.5 mg, 0.25 mL, Route: IVP, Drug 08/25/2013 08/25/2013 Discontinued form: INJ, Q5Min, Dosing Weight 97.727, kg, PRN Pain Score 7-10, Start date: 08/25/13 9:07:00, Duration: 4 doses or times, Stop date: Limited # of times(Same as: Dilaudid) morphine Sulfate 2 mg, 0.2 mL, Route: IVP, Drug 08/25/2013 08/25/2013 Discontinued form: INJ, Q5Min, Dosing Weight 97.727, kg, PRN Pain Score 4-6, Start date: 08/25/13 9:07:00, Duration: 5 doses or times, Stop date: Limited # of times(Same as:MORPhine Sulfate) ephedrine 5 mg, 0.1 mL, Route: IVP, Drug 08/25/2013 08/25/2013 Discontinued form: INJ, Q5Min, Dosing Weight 97.727, kg, PRN Low Blood Pressure, Start date: 08/25/13 9:07:00, Duration: 30 day, Stop date: 09/24/13 9:06:00(Same as: Ephedrine Sulfate) flumazenil 0.2 mg, 2 mL, Route: IVP, Drug 08/25/2013 08/25/2013 Discontinued form: INJ, PRN, Dosing Weight 97.727, kg, PRN Benzodiazepine Reversal, Initial dose, Start date: 08/25/13 9:07:00, Duration: 30 day, Stop date: 09/24/13 9:06:00(Same as: Romazicon) naloxone 0.04 mg, 0.1 mL, Route: IVP, Drug 08/25/2013 08/25/2013 Discontinued form: INJ, Q2MIN, Dosing Weight 97.727, kg, PRN Narcotic Reversal, Start date: 08/25/13 9:07:00, Duration: 8 doses or times, Stop date: Limited # of timesSame as Narcan enoxaparin 40 mg, 0.4 mL, Route: SUB-Q, Drug 08/25/2013 08/28/2013 Discontinued form: INJ, Daily, Dosing Weight 97.727, kg, Start date: 08/25/13 23:00:00, Duration: 30 day, Stop date: 09/23/13 23:00:00(Same as: Lovenox) Tylenol with Codeine 1 tab, Route: PO, Drug Form: TAB, 08/25/2013 08/28/2013 Discontinued #3 oral tablet Dosing Weight 97.727, kg, Q4H, PRN Pain, Start date: 08/25/13 21:31:00, Duration: 30 day, Stop date: 09/24/13 21:30:00Do not exceed 4gm/day of acetaminophen. (Same as: Tylenol with Codeine # 3) ciprofloxacin 400 400 mg, Route: IVPB, ONCE, Dosing 08/25/2013 08/25/2013 Completed mg/200 mL Weight 97.727, kg, Start date: intravenous solution 08/25/13 7:34:00, Stop date: 08/25/13 7:34:00 fluconazole 100 mg, 1 tab, Route: PO, Drug 08/25/2013 08/28/2013 Discontinued form: TAB, [id number], Dosing Weight 97.727, kg, Start date: 08/25/13 22:00:00, Duration: 30 day, Stop date: 09/23/13 22:00:00(Same as: Diflucan) Immunizations Vaccine Date Status influenza virus vaccine, inactivated 08/26/2013 Auth (Verified) Vital Signs Most recent to oldest [Reference Range]: 1 2 3 Height 160.02 cm (08/24/2013 15:36:00) Temperature Oral [96.4-99.1 DegF] 98.1 DegF (08/28/2013 14:37:00) 98.4 DegF (08/28/2013 12:51:00) 98.2 DegF (08/28/2013 08:24:00) Systolic Blood Pressure [90-140 mmHg] 135 mmHg (08/28/2013 14:37:00) 115 mmHg (08/28/2013 12:51:00) 116 mmHg (08/28/2013 08:24:00) Diastolic Blood Pressure [60-90 mmHg] 77 mmHg (08/28/2013 14:37:00) 69 mmHg (08/28/2013 12:51:00) 75 mmHg (08/28/2013 08:24:00) Respiratory Rate [14-20 BRMIN] 18 BRMIN (08/28/2013 14:37:00) 16 BRMIN (08/28/2013 12:51:00) 16 BRMIN (08/28/2013 08:24:00) Peripheral Pulse Rate [60-100 bpm] 72 bpm (08/28/2013 14:37:00) 75 bpm (08/28/2013 12:51:00) 68 bpm (08/28/2013 08:24:00) Weight 97.727 kg (08/24/2013 15:36:00) Results CHEMISTRY Most recent to oldest [Reference Range]: 1 2 3 Sodium Lvl [135-145 mEq/L] 139 mEq/L (08/26/2013 05:26:00) Potassium Lvl [3.5-5.1 mEq/L] 3.6 mEq/L (08/26/2013 05:26:00) Chloride Lvl [95-109 mEq/L] 106 mEq/L (08/26/2013 05:26:00) CO2 [24-32 mEq/L] 23 mEq/L *LOW* (08/26/2013 05:26:00) AGAP [10.0-20.0 mEq/L] 13.6 mEq/L (08/26/2013 05:26:00) Creatinine Lvl [0.5-1.4 mg/dL] 1.0 mg/dL (08/26/2013 05:26:00) 0.9 mg/dL (08/25/2013 12:25:00) eGFR 61 mL/min/1.73m2 1 *NA* (08/26/2013 05::00) 69 mL/min/1.73m2 2 *NA* (08/25/2013 12:25:00) BUN [7-22 mg/dL] 14 mg/dL (08/26/2013 05::00) B/C Ratio [6-25] 14 (08/26/2013 05::00) Glucose Lvl [70-99 mg/dL] 127 mg/dL 3 *HI* (08/26/2013 05:26:00) Total Protein [6.4-8.4 g/dL] 6.1 g/dL *LOW* (08/26/2013 05:26:00) Albumin Lvl [3.5-5.0 g/dL] 2.8 g/dL *LOW* (08/26/2013 05:26:00) Globulin [2.0-4.0 g/dL] 3.3 g/dL (08/26/2013 05:26:00) A/G Ratio [0.7-1.6] 0.8 (08/26/2013 05:26:00) Calcium Lvl [8.5-10.5 mg/dL] 8.2 mg/dL *LOW* (08/26/2013 05:26:00) ALT [0-65 unit/L] 32 unit/L (08/26/2013 05:26:00) AST [0-37 unit/L] 27 unit/L (08/26/2013 05:26:00) Alk Phos [39-136 unit/L] 87 unit/L (08/26/2013 05:26:00) Bili Total [0.2-1.3 mg/dL] 0.5 mg/dL (08/26/2013 05:26:00) 1Result Comment: The eGFR is calculated using [...] from the National Kidney Disease Education Program ( NKDEP) which additionally recommends that when the eGFR is used in patients with extremes of body mass index for purposes of drug dosing, the eGFR should be mul tiplied by the estimated BMI. 2Result Comment: The eGFR is calculated using [...] from the National Kidney Disease Education Program ( NKDEP) which additionally recommends that when the eGFR is used in patients with extremes of body mass index for purposes of drug dosing, the eGFR should be mul tiplied by the estimated BMI. 3Interpretive Data: Adult reference range values reflect the clinical guidelines of the [place] [employer]. HEMATOLOGY Most recent to oldest [Reference Range]: 1 2 3 WBC [3.7-10.4 K/CMM] 8.5 K/CMM (08/26/2013 05:26:00) RBC [4.20-5.40 M/CMM] 3.65 M/CMM *LOW* (08/26/2013 05:26:00) Hgb [12.0-16.0 g/dL] 12.0 g/dL (08/28/2013 04:19:00) 10.7 g/dL *LOW* (08/26/2013 05:26:00) 13.1 g/dL (08/24/2013 16:15:20) Hct [36.0-48.0 %] 31.4 % *LOW* (08/26/2013 05:26:00) 39.2 % (08/24/2013 16:15:20) MCV [81.0-99.0 fL] 86.2 fL (08/26/2013 05:26:00) MCH [27.0-31.0 pg] 29.2 pg (08/26/2013 05:26:00) MCHC [32.0-36.0 g/dL] 33.9 g/dL (08/26/2013 05:26:00) RDW [11.5-14.5 %] 13.5 % (08/26/2013 05:26:00) Platelet [133-450 K/CMM] 229 K/CMM (08/26/2013 05:26:00) 263 K/CMM (08/25/2013 12:25:00) MPV [7.4-10.4 fL] 8.6 fL (08/26/2013 05:26:00) Segs [45.0-75.0 %] 78.7 % *HI* (08/26/2013 05:26:00) Lymphocytes [20.0-40.0 %] 14.1 % *LOW* (08/26/2013 05:26:00) Monocytes [2.0-12.0 %] 7.1 % (08/26/2013 05:26:00) Eosinophils [0.0-4.0 %] 0.0 % (08/26/2013 05:26:00) Basophils [0.0-1.0 %] 0.1 % (08/26/2013 05:26:00) Segs-Bands # [1.5-8.1 K/CMM] 6.7 K/CMM (08/26/2013 05:26:00) Lymphocytes # [1.0-5.5 K/CMM] 1.2 K/CMM (08/26/2013 05:26:00) Monocytes # [0.0-0.8 K/CMM] 0.6 K/CMM (08/26/2013 05:26:00) Eosinophils # [0.0-0.5 K/CMM] 0.0 K/CMM (08/26/2013 05:26:00) Basophils # [0.0-0.2 K/CMM] 0.0 K/CMM (08/26/2013 05:26:00) PT [12.0-14.7 seconds] 15.0 seconds *HI* (08/26/2013 05:26:00) INR [0.85-1.17] 1.19 4 *HI* (08/26/2013 05:26:00) PTT [22.9-35.8 seconds] 36.6 seconds 5 *HI* (08/26/2013 05:26:00) 4Interpretive Data: RECOMMENDED RANGES FOR PROTIME INR: 2.0-3.0 for most medical and surgical thromboembolic states. 2.5-3.5 for artificial heart valves and recurrent embolism. INR SHOULD BE USED ONLY FOR PATIENTS ON STABLE ANTICOAGULANT THERAPY. 5Interpretive Data: Heparin Therapeutic Range: 57 - 92 Seconds
--- OUTSIDE RECORDS SUMMARY | 2018-09-23 00:21 | XMS REPORT | CCD ---
Author Author Auto Generated Organization [facility] Address Unknown Phone Unavailable Care Team Providers Care Plastic Tubing Insulation Supervisor Name Role Phone Narayan Meeks RP Allergies, Adverse Reactions, Alerts Substance Reaction Status codeine Active NKFA Active penicillins Active Problem List Condition Effective Dates Status Constipation Active Hyperlipidemia Active Renal mass Active Medications Medication Instructions Start Date End Date Status aspirin 325 mg, PO, PRN, Substitution 07/19/2013 Ordered Allowed [place] 5/325 oral 1 tab, Route: PO, Drug Form: TAB, 07/20/2013 07/20/2013 Discontinued tablet Dosing Weight 95.455, kg, Q4H, PRN Pain, Start date: 07/20/13 10:22:00, Duration: 30 day, Stop date: 08/19/13 10:21:00(Same as: [place] 325/5) Do not exceed 4gm/day of acetaminophen. [...]
[2018-09-23] MEDS ORDERED: FAMOTIDINE 20 MG/2 ML VIAL IV STA (00:47)
[2018-09-23] MEDS ORDERED: DIPHENHYDRAMINE HCL INJ 50 MG/ML VIAL IV ONE (01:00)
[2018-09-23] MEDS ORDERED: METHYLPREDNISOLONE SOD SUCC 125 MG/2ML VIAL IV ONE (01:00)
== END 2018-09-23 03:00 | disposition home or self-care (01) ==
LOC: ER 00:17
DX: L50.0 Allergic urticaria (principal); T78.3XXA Angioneurotic edema, initial encounter; T37.0X4A Poisoning by sulfonamides, undetermined, initial encounter
CPT/HCPCS: 99284; J1200; J2930

== ENCOUNTER 2018-12-15 23:41 | Observation (INO) | payer MEDICARE ==
[~2018-12-15] VITALS: Ht 165.1 cm; Wt 79.4 kg
--- OUTSIDE RECORDS SUMMARY | 2018-12-15 23:44 | XMS REPORT | Clinical Summary ---
Author Author [facility] Address Unknown Phone Unavailable Care Team Providers Care Supervisor Marble Name Role Phone Narayan Meeks MD PCP Unavailable Allergies Comments Active Allergy Reactions Severity Noted Date Sulfamethoxazole-Trimetho 12/03/2018 prim Codeine Hydrocodone-Acetaminophen Restricted Airway Penicillins Anaphylaxis High 12/04/2015 Medications [...] NEEDED (DYSURIA) FOR UP TO 360 DAYS 04/28/2019 Active ciprofloxacin (CIPRO) 500 Take 1 tablet 20 tablet 2 MG tabletIndications: (500 mg 9 Recurrent UTI total) by mouth 2 (two) times a day as needed (UTI symptoms) for up to 180 days. Active methasha-jack-s.phos-phsa Take 1 tablet 30 capsule 0 l-hyo 118-10-40.8-36 mg by mouth 3 9 capsuleIndications: (three) times Dysuria a day as needed (Dysuria). 07/06/2018 Discontinued diltiazem (CardIZEM) 30 Take 30 mg by 0 MG tablet mouth 4 (four) times a day. 07/06/2018 Discontinued cephalexin (KEFLEX) 500 Take 1 100 capsule 3 MG capsuleIndications: capsule (500 7 Urinary tract infection mg total) by without hematuria, site mouth 4 unspecified (four) times a day as needed (dysuria) for up to 360 days. 01/09/2018 ciprofloxacin (CIPRO) 500 Take 1 tablet [...] total) by mouth daily for 10 days. 10/30/2018 Discontinued ciprofloxacin (CIPRO) 500 Take 1 tablet 20 tablet 2 MG tabletIndications: (500 mg 8 Recurrent UTI total) by mouth 2 (two) times a day as needed (UTI symptoms) for up to 180 days. 11/09/2018 fluconazole (DIFLUCAN) Take 1 tablet 10 tablet 0 200 MG tablet (200 mg 9 total) by mouth daily for 10 days. 12/03/2018 Discontinued nitrofurantoin Take 100 mg 0 (MACRODANTIN) 100 MG by mouth 4 capsule (four) times a day. 12/13/2018 nitrofurantoin Take 1 20 capsule 0 (MACRODANTIN) 100 MG capsule (100 9 capsuleIndications: mg total) by Recurrent UTI mouth 2 (two) times a day for 10 days. Active Problems Problem Noted Date Pyelonephritis 08/03/2018 Anemia 07/06/2018 GI bleed 07/06/2018 Gastrointestinal hemorrhage associated with gastritis 07/06/2018 Overview: Added automatically from request for surgery [id number] Uterine fibroid 12/04/2015 Renal cell carcinoma 12/04/2015 Overview: left Resolved Problems Problem Noted Date Resolved Date Flank pain 07/21/2018 08/03/2018 Urinary tract infection 12/04/2015 08/03/2018 Encounters Care Team Description Date Type Specialty Narayan Meeks MD Recurrent UTI (Primary Dx); Dysuria 12/03/2018 Office Visit Urology Narayan Meeks MD Recurrent UTI 10/30/2018 Telephone UrologNarayan Arizmendi MD Recurrent UTI (Primary Dx) 08/26/2018 Refill UrologNarayan Arizmendi MD Urinary tract infection without hematuria, site unspecified 08/18/2018 Refill UrologNarayan Arizmendi MD Pyelonephritis (Primary Dx); Renal cell carcinoma [...] tract infection without hematuria, site unspecified 07/21/2018 [facility] General Internal Medicine - Encounter 07/23/2018 Narayan Meeks MD 07/21/2018 Telephone Narayan Esparza MD Recurrent UTI (Primary Dx); Renal cell carcinoma of left kidney (HCC); Gastrointestinal hemorrhage associated with acute gastritis 07/14/2018 Office Visit Carloz Cain MD Recurrent UTI (Primary Dx) 07/09/2018 Office Visit Internal Medicine Jesus Clay MD 07/07/2018 Anesthesia Gastroenterology Event Dmitriy Simpson MD ESOPHAGOGASTRODUODENOSCOPY (EGD) 07/07/2018 Surgery Gastroenterology Vladimir Bejarano MD Colton, Lara, MD Anemia, unspecified type (Primary Dx); Gastrointestinal hemorrhage with melena; Generalized abdominal pain; Dizziness; Syncope, unspecified syncope type; Weakness generalized; Gastrointestinal hemorrhage associated with gastritis, unspecified gastritis type; Acute hyperglycemia 07/06/2018 Hospital Orthopedic Surgery - Encounter 07/08/2018 Narayan Meeks MD 06/26/2018 Telephone Narayan Esaprza MD Renal cell carcinoma of left kidney (Primary Dx); Urinary tract infection without hematuria, site unspecified 05/21/2018 Office Visit Narayan Esparza MD 05/20/2018 Telephone Narayan Esparza MD 04/14/2018 Refill Narayan Esparza MD Urinary tract infection without hematuria, site unspecified (Primary Dx) 01/02/2018 Refill Urology after 12/14/2017 Family History Relation Name Status Comments Brother [...] Vital Signs Time Taken Vital Sign Reading 12/03/2018 10:48 AM CDT Blood Pressure 124/69 12/03/2018 10:48 AM CDT Pulse 63 07/23/2018 7:47 AM CDT Temperature 36.8 C (98.3 F) 08/03/2018 3:15 PM BLANKET BINDER Respiratory Rate 18 07/23/2018 10:43 AM CDT Oxygen Saturation 94% - Inhaled Oxygen - Concentration 12/03/2018 10:48 AM CDT Weight 103 kg (228 lb) 12/03/2018 10:48 AM CDT Height 165.1 cm (5' 5") 12/03/2018 10:48 AM CDT Body Mass Index 37.94 Plan of Treatment Care Team Description [place] [address] [address] [address] [place], [place] [id number] 08/26/2019 Office Visit Urology Health Maintenance Due Date Last Done Comments BREAST CANCER SCREENING 2002 COLON CANCER SCREENING 2002 SHINGLES VACCINES (#1) 2002 65+ PNEUMOCOCCAL VACCINE 2017 (1 of 2 - PCV13) PNEUMOCOCCAL 2017 POLYSACCHARIDE VACCINE AGE 65 AND OVER INFLUENZA VACCINE 04/22/2018 Procedures Comments Procedure Name Priority Date/Time Associated Diagnosis POC URINALYSIS DIPSTICK Routine 12/03/2018 Recurrent UTI 10:51 AM CDT URINE CULTURE Routine 12/03/2018 Recurrent UTI 10:50 AM CDT URINALYSIS SCREEN AND Routine 08/05/2018 Complicated urinary tract MICROSCOPY, WITH REFLEX 10:01 AM BLANKET BINDER infection TO CULTURE URINE CULTURE Routine 08/05/2018 10:01 AM BLANKET BINDER POC URINALYSIS DIPSTICK Routine 08/03/2018 Pyelonephritis 4:39 PM BLANKET BINDER URINE CULTURE Routine 08/03/2018 Pyelonephritis 3:39 PM BLANKET BINDER URINALYSIS, AUTOMATED Routine 08/03/2018 Pyelonephritis WITH MICROSCOPY 3:38 PM BLANKET BINDER OBTAIN MEDICAL RECORDS Routine 07/29/2018 HC CATH [...] ECG 12-LEAD STAT 07/06/2018 7:19 PM CDT DC CRITICAL CARE, E/M Routine 07/06/2018 30-74 MINUTES [...] of 10:31 AM CDT left kidney after 12/14/2017 Results * POC urinalysis dipstick (12/03/2018 10:51 AM CDT) Only the most recent of 4 results within the time period is included. Color urine, POC Yellow Clarity urine, POC Clear Glucose urine, POC Negative Negative Bilirubin urine, POC Negative Negative Ketones urine, POC Negative Negative Specific gravity urine, 1.025 1.005 - 1.030 POC Blood urine, POC Negative Negative pH urine, POC 5.5 5.0, 5.5, 6.0, 6.5, 7.0, 7.5, 8.0, 8.5 Protein urine, POC Trace (A) Negative Urobilinogen urine, POC <2.0 <2.0 Nitrite urine, POC Negative Negative Leukocyte esterase urine, Negative Negative POC Specimen Urine * Urine culture (12/03/2018 10:50 AM CDT) Only the most recent of 7 results within the time period is included. Urine culture SEE NOTE [place] Comment: [place] CULTURE, URINE, ROUTINE MICRO NUMBER:[id number] TEST STATUS: FINAL SPECIMEN SOURCE: NOT GIVEN SPECIMEN QUALITY:ADEQUATE RESULT: No Growth Specimen Urine - Urine, clean catch Resulting Agency Comment Performing Organization Information: Site ID: [id number] Name: [facility] Address: [address] [place] [phone] Director: Danelle Mujica Performing Organization Address City/State/Zipcode Phone Number [place] [address] * Urinalysis screen and microscopy, with reflex to culture (08/05/2018 10:01 AM BLANKET BINDER) Only the most recent of 3 results within the time period is included. Specimen site Clean catch [facility] Color, UA Straw YELLOW [facility] Appearance, UA Clear Clear [facility] Specific gravity, UA 1.018 1.005 - 1.030 [facility] pH, UA 5.0 5.0 - 8.0 [facility] Protein, UA Negative Negative [facility] Glucose, UA Negative Negative [facility] Ketones, UA Negative Negative [facility] Bilirubin, UA Negative Negative [facility] Blood, UA Negative Negative [facility] Nitrite, UA Negative NEGATIVE [facility] Urobilinogen, UA <2.0 <2.0 E.U./dL [facility] Leukocyte esterase, UA Negative Negative [facility] Epithelial cells, UA 1 0 - 15 /HPF [facility] WBC, UA None seen 0 - 5 /Hpf [facility] RBC, UA None seen 0 - 5 /HPF [facility] Bacteria, UA None seen None seen [facility] Yeast, UA None seen None Seen [facility] Yeast with pseudohyphae, None seen [facility] Specimen Urine Performing Organization Address [facility] Phone Number [facility] [address] [place] [address] PATHOLOGY AND GENOMIC MEDICINE [address] [place] [address] [facility] * Urinalysis, automated with microscopy (08/03/2018 3:38 PM BLANKET BINDER) Color, UA YELLOW YELLOW [facility] [place] Appearance CLOUDY (A) CLEAR [facility] [place] Specific gravity, urine 1.022 1.001 - 1.035 [facility] [place] pH, urine 5.5 5.0 - 8.0 [facility] [place] Glucose, urine NEGATIVE NEGATIVE [facility] [place] Bilirubin, UA NEGATIVE NEGATIVE [facility] [place] Ketones, UA NEGATIVE NEGATIVE [facility] [place] Occult blood, urine NEGATIVE NEGATIVE [facility] [place] Protein, UA NEGATIVE NEGATIVE [facility] [place] Nitrite, UA NEGATIVE NEGATIVE [facility] [place] Leukocyte esterase, UA NEGATIVE NEGATIVE [facility] [place] WBC, UA 0-5 < OR=5 /HPF [facility] [place] RBC, UA 0-2 < OR=2 /HPF [facility] [place] Squamous epithelial 0-5 < OR=5 /HPF [facility] cells, UA [place] Bacteria, UA FEW (A) NONE SEEN /HPF [facility] [place] Hyaline casts, UA NONE SEEN NONE SEEN /LPF [facility] [place] Specimen Urine Resulting Agency Comment Performing Organization Information: Site ID: [id number] Name: [facility] Address: [address] [place] [phone] Director: Danelle Mujica Performing Organization Address City/State/Zipcode Phone Number [facility] [place] [address] [phone] * Obtain medical records (07/29/2018) Narrative Performed At * PICC INSERTION (07/23/2018 4:07 PM CDT) Narrative Performed At Johanna Dan RN 07/23/20184:09 PM PICC insertion Date/Time: 07/23/2018 4:08 PM Performed by: JOHANNA DAN Authorized by: YAYA VERAS Consent: Consent obtained:Verbal Consent given by:Patient Risks discussed: infection, superficial thrombus and deep vein thrombus [facility] protocol: Procedure explained and questions answered to [...] (Will create an LDA): Patient position:Trendelenburg Indication:Known watcher automat long goods IV therapy Location:Left basilic Device Type:Non-valved Catheter size:5 Fr PICC Characteristics: Catheter Brand:Bard Internal Catheter Length (cm):41 Total Catheter Length (cm):41 Catheter Lot Number:[id number] Catheter Expiration Date:06/21/2019 Procedure Details: Landmarks identified: [...] is included. Estimated GFR 77 mL/min/1.73 m2 [facility] DEPARTMENT OF Comment: PATHOLOGY AND CatergoryUnitsInte GENOMIC MEDICINE rpretation G1 >=90 Normal or high G2 60-89Mildly decreased [id number] Mildly to moderately decreased T3m17-00 Moderately to severely decreased G4 15-29Severely decreased G5 <15Kidney failure The eGFR was calculated using the Chronic Kidney Disease Epidemiology Collaboration (CKD-EPI) equation. Interpretation is based on recommendations of the National Kidney Foundation-Kidney Disease Outcomes Quality Initiative (NKF-KDOQI) published in 2014. Specimen Plasma specimen Performing Organization Address City/State/Zipcode Phone Number [place] [phone] [facility] [address] [place] [address] PATHOLOGY AND [employer] [facility]ICINE * CBC with platelet and differential (07/23/2018 4:15 AM CDT) Only the most recent of 6 results within the time period is included. WBC 2.7 (L) 4.5 - 11.0 k/uL [facility] DEPARTMENT OF PATHOLOGY AND GENOMIC MEDICINE RBC 3.45 (L) 4.20 - 5.50 M/uL [facility] DEPARTMENT OF PATHOLOGY AND GENOMIC MEDICINE HGB 9.8 (L) 14.0 - 18.0 g/dL [facility] DEPARTMENT OF PATHOLOGY AND GENOMIC MEDICINE HCT 31.0 (L) 37.0 - 47.0 % [facility] DEPARTMENT OF PATHOLOGY AND GENOMIC MEDICINE MCV 89.9 82.0 - 100.0 fL [facility] DEPARTMENT OF PATHOLOGY AND GENOMIC MEDICINE MCH 28.4 27.0 - 34.0 pg [facility] DEPARTMENT OF PATHOLOGY AND GENOMIC MEDICINE MCHC 31.6 31.0 - 37.0 g/dL [facility] DEPARTMENT OF PATHOLOGY AND GENOMIC MEDICINE RDW - SD 53.4 37.0 - 55.0 fL [facility] DEPARTMENT OF PATHOLOGY AND GENOMIC MEDICINE MPV 10.2 8.8 - 13.2 fL [facility] DEPARTMENT OF PATHOLOGY AND GENOMIC MEDICINE Platelet count 186 150 - 400 K/uL [facility] DEPARTMENT OF PATHOLOGY AND GENOMIC MEDICINE Nucleated RBC 0.00 /100 WBC [facility] DEPARTMENT OF PATHOLOGY AND GENOMIC MEDICINE Neutrophils 36.0 (L) 39.0 - 69.0 % [facility] DEPARTMENT OF PATHOLOGY AND GENOMIC MEDICINE Lymphocytes 46.7 (H) 25.0 - 45.0 % [facility] DEPARTMENT OF PATHOLOGY AND GENOMIC MEDICINE Monocytes 14.0 (H) 0.0 - 10.0 % [facility] DEPARTMENT OF PATHOLOGY AND GENOMIC MEDICINE Eosinophils 2.6 0.0 - 5.0 % [facility] DEPARTMENT OF PATHOLOGY AND GENOMIC MEDICINE Basophils 0.7 0.0 - 1.0 % [facility] DEPARTMENT OF PATHOLOGY AND GENOMIC MEDICINE Immature granulocytes 0.0Comment: "Immature 0.0 - 1.0 % [facility] DEPARTMENT OF granulocytes" (promyelocytes, PATHOLOGY AND myelocytes, metamyelocytes) GENOMIC MEDICINE Specimen Blood Performing Organization Address City/[facility]/Zipcode Phone Number [address] [place] [address] PATHOLOGY [facility] [employer] [facility] * Basic metabolic panel (07/23/2018 4:15 AM CDT) Only the most recent of 2 results within the time period is included. Sodium 138 135 - 148 mEq/L [facility] DEPARTMENT OF PATHOLOGY AND GENOMIC MEDICINE Potassium 4.4 3.5 - 5.0 mEq/L [facility] DEPARTMENT OF PATHOLOGY AND GENOMIC MEDICINE Chloride 107 99 - 109 mEq/L [facility] DEPARTMENT OF PATHOLOGY AND GENOMIC MEDICINE CO2 18 (L) 24 - 31 mEq/L [facility] OF PATHOLOGY AND GENOMIC MEDICINE Anion gap 13@ANIO 7 - 15 mEq/L [facility] DEPARTMENT OF PATHOLOGY AND GENOMIC MEDICINE BUN 11 8 - 24 mg/dL [facility] DEPARTMENT OF PATHOLOGY AND GENOMIC MEDICINE Creatinine 0.80 0.50 - 0.90 mg/dL [facility] PATHOLOGY AND GENOMIC MEDICINE Glucose 113 (H) 65 - 99 mg/dL [facility] PATHOLOGY AND GENOMIC MEDICINE Calcium 8.3 (L) 8.6 - 10.6 mg/dL [facility] PATHOLOGY AND [employer] [facility] Specimen Plasma specimen Performing Organization Address City/[facility]/Zipcode Phone Number [address] [place] [address] PATHOLOGY [facility] [employer] [facility] * MRI Abdomen W Wo Contrast (07/22/2018 [...] cysts, largest 1.2 cm. 3.Mild hepatic steatosis. [id number] Procedure Note Interface, Radiology Results Incoming - 07/22/2018 5:32 PM [...] largest 1.2 cm. 3. Mild hepatic steatosis. [id number] Performing Organization Address City/State/Zipcode Phone Number [facility] [address] [place] [id number] * Blood culture, aerobic & anaerobic (07/21/2018 11:30 AM CDT) Only the most recent of 2 results within the time period is included. Blood culture isolate No growth after 5 days of [facility] DEPARTMENT OF incubation. PATHOLOGY AND Comment: GENOMIC MEDICINE Specimen Information Specimen Source: Blood Specimen Site: Hand, left Specimen Blood - Hand, left Performing Organization Address City/[facility] Phone Number [facility] DEPARTMENT OF [address] [place] [address] PATHOLOGY AND GENOMIC MEDICINE * CT Renal Stone Protocol (07/21/2018 11:25 AM CDT) Narrative Performed At EXAMINATION:CT RENAL STONE PROTOCOL [facility] CLINICAL HISTORY:L flank painhematuria TECHNIQUE:Multiple axial images [...] or lymphadenopathy. 3.Degenerative change in the spine. [id number] Procedure Note Interface, Radiology Results Incoming - [...] lymphadenopathy. 3. Degenerative change in the spine. [id number] Performing Organization Address [facility] Phone Number [facility] [address] [place] [address] * Gram stain (07/21/2018 9:10 AM CDT) Only the most recent of 2 results within the time period is included. Gram stain result No WBC's [facility] DEPARTMENT OF Few Gram negative rods PATHOLOGY AND Comment: GENOMIC MEDICINE Specimen Information Specimen Source: Urine Specimen Site: Random void Specimen Urine - Random void Performing Organization Address [facility] Phone Number [facility] OF [address] [place] [address] PATHOLOGY AND GENOMIC MEDICINE * Magnesium level (07/21/2018 9:10 AM CDT) Magnesium 2.2 1.7 - 2.4 mg/dL [facility] DEPARTMENT OF PATHOLOGY AND GENOMIC MEDICINE Specimen Plasma specimen Performing Organization Address [facility] Cent[facility]ode Phone Number [facility] [address] [facility] [place] [address] PATHOLOGY AND GENOMIC MEDICINE * Comprehensive metabolic panel (07/21/2018 9:10 AM CDT) Only the most recent of 2 results within the time period is included. Sodium 135 135 - 148 mEq/L [facility] OF PATHOLOGY AND GENOMIC MEDICINE Potassium 5.2 (H) 3.5 - 5.0 mEq/L [facility] OF PATHOLOGY AND GENOMIC MEDICINE Chloride 101 99 - 109 mEq/L [facility] PATHOLOGY AND GENOMIC MEDICINE CO2 22 (L) 24 - 31 mEq/L [facility] PATHOLOGY AND GENOMIC MEDICINE Anion gap 12@ANIO 7 - 15 mEq/L [facility] PATHOLOGY AND GENOMIC MEDICINE BUN 20 8 - 24 mg/dL [facility] PATHOLOGY AND GENOMIC MEDICINE Creatinine 1.00 (H) 0.50 - 0.90 mg/dL [facility] PATHOLOGY AND GENOMIC MEDICINE Glucose 131 (H) 65 - 99 mg/dL [facility] PATHOLOGY AND GENOMIC MEDICINE Calcium 9.0 8.6 - 10.6 mg/dL [facility] PATHOLOGY AND GENOMIC MEDICINE Protein 8.0 6.3 - 8.2 g/dL [facility] PATHOLOGY AND GENOMIC MEDICINE Albumin 4.4 3.5 - 5.0 g/dL [facility] PATHOLOGY AND GENOMIC MEDICINE A/G ratio 1.22 0.70 - 3.80 [facility] PATHOLOGY AND GENOMIC MEDICINE Alkaline phosphatase 82 30 - 115 U/L [facility] PATHOLOGY AND GENOMIC MEDICINE AST 26 15 - 46 U/L [facility] PATHOLOGY AND GENOMIC MEDICINE ALT 31 10 - 55 U/L [facility] PATHOLOGY AND [employer] [facility] Total bilirubin 0.4 0.2 - 1.2 mg/dL [facility] OF PATHOLOGY AND GENOMIC MEDICINE Specimen Plasma specimen Performing Organization Address City/State/Zipcode Phone Number [address] [place] [address] PATHOLOGY AND [employer] [facility] * URINALYSIS, COMPLETE, WITH REFLEX TO CULTURE (07/09/2018 4:45 PM CDT) Color, UA DARK YELLOW YELLOW [facility] [place] Appearance CLOUDY (A) CLEAR [facility] [place] Specific gravity, urine 1.031 1.001 - 1.035 [facility] [place] pH, urine 6.0 5.0 - 8.0 [facility] [place] Glucose, urine NEGATIVE NEGATIVE [facility] [place] Bilirubin, UA NEGATIVE NEGATIVE [facility] [place] Ketones, UA TRACE (A) NEGATIVE [facility] [place] Occult blood, urine NEGATIVE NEGATIVE [facility] [place] Protein, UA TRACE (A) NEGATIVE [facility] [place] Nitrite, UA POSITIVE (A) NEGATIVE [facility] [place] Leukocyte esterase, UA 2+ (A) NEGATIVE [facility] [place] WBC, UA 10-20 (A) < OR=5 /HPF [facility] [place] RBC, UA 0-2 < OR=2 /HPF [facility] [place] Squamous epithelial 0-5 < OR=5 /HPF [facility] cells, UA [place] Bacteria, UA MANY (A) NONE SEEN /HPF [facility] [place] Calcium oxalate crystals, FEW NONE OR FEW /HPF [facility] UA [place] Amorphous crystals FEW NONE OR FEW /HPF [facility] [place] Hyaline casts, UA NONE SEEN NONE SEEN /LPF [facility] [place] Comment FEW MUCOUS THREADS [facility] [place] Reflex CULTURE INDICATED - RESULTS TO [facility] FOLLOW [place] Narrative Performed At FASTING:NO [facility] FASTING: NO Resulting Agency Comment Performing Organization Information: Site ID: [id number] Name: [facility] Address: [address] [place] [phone] Director: Danelle Mujica Performing Organization Address [facility] Phone Number [facility] [place] [phone] * Total iron binding capacity (07/08/2018 6:54 AM CDT) Iron level 69 37 - 145 ug/dL [facility] DEPARTMENT OF PATHOLOGY AND GENOMIC MEDICINE Iron binding capacity 348 200 - 400 ug/dL [facility] DEPARTMENT OF PATHOLOGY AND GENOMIC MEDICINE % Saturation 19.8 15.0 - 38.0 % [facility] DEPARTMENT OF PATHOLOGY AND GENOMIC MEDICINE Specimen Plasma specimen Performing Organization Address [facility] [place] [address] PATHOLOGY [facility] * Reticulocyte count (07/08/2018 6:54 AM CDT) Retic %, auto 3.2 (H) 0.5 - 2.1 % [facility] DEPARTMENT OF PATHOLOGY AND GENOMIC MEDICINE Retic absolute, auto 0.1179 (H) 0.0210 - 0.1155 m/uL [facility] DEPARTMENT OF PATHOLOGY AND GENOMIC MEDICINE Specimen Blood Performing Organization Address [facility] [place] [address] PATHOLOGY AND [facility] * Ferritin level (07/08/2018 6:54 AM CDT) Ferritin level 46 13 - 150 ng/mL [facility] DEPARTMENT OF PATHOLOGY AND GENOMIC MEDICINE Specimen Plasma specimen Performing Organization Address City/State/Zipcode Phone Number [facility] [place] [address] PATHOLOGY AND GENOMIC MEDICINE * Transfuse RBC, 2 Units (07/07/2018 7:36 PM CDT) Only the most recent of 6 results within the time period is included. * Surgical pathology request (07/07/2018 1:53 PM CDT) [facility] DEPARTMENT OF PATHOLOGY AND GENOMIC MEDICINE Surgical pathology report See link below for PDF Lab [facility] DEPARTMENT OF Report PATHOLOGY AND GENOMIC MEDICINE Result status This is Final Report for [facility] DEPARTMENT OF [id number] PATHOLOGY AND GENOMIC MEDICINE Performing Organization Address City/[facility] [place] [address] PATHOLOGY AND GENOMIC MEDICINE * Smear review (07/07/2018 3:48 AM CDT) Only the most recent of 2 results within the time period is included. Platelet slide review Sona adequate [facility] DEPARTMENT OF PATHOLOGY AND GENOMIC MEDICINE Anisocytosis Moderate [facility] DEPARTMENT OF PATHOLOGY AND GENOMIC MEDICINE Ovalocytes Moderate [facility] DEPARTMENT OF PATHOLOGY AND GENOMIC MEDICINE Performing Organization Address City/[facility]ercode Phone Number [facility] [place] [address] PATHOLOGY AND GENOMIC MEDICINE * Troponin (07/07/2018 3:48 AM CDT) Only the most recent of 2 results within the time period is included. Troponin <0.30 0.00 - 0.30 ng/mL [facility] DEPARTMENT OF Comment: PATHOLOGY AND 0.30 - 1.49 GENOMIC MEDICINE ng/mlMay indicate increased risk of acute coronary syndrome. >=1.5 ng/ml Consistent with acute myocardial infarction. The diagnostic value of a single normal or non-diagnostic result is questionable.Serial samples at 2-6 hour intervals are required to rule out acute myocardial injury. Specimen Plasma specimen Performing Organization Address City/[facility]/[place] [address] PATHOLOGY AND GENOMIC MEDICINE * Gastrointestinal panel (07/06/2018 8:17 PM CDT) Gastrointestinal panel Negative for all pathogens [facility] DEPARTMENT OF tested: PATHOLOGY AND Negative [...] Specimen Stool - Nonpreserved Performing Organization Address [facility] Centercode Phone Number [facility] [place] [address] PATHOLOGY AND GENOMIC MEDICINE * B natriuretic peptide (07/06/2018 7:40 PM CDT) BNP 45 0 - 100 pg/mL [facility] DEPARTMENT OF PATHOLOGY AND GENOMIC MEDICINE Specimen Blood Performing Organization Address [facility] Phone Number [facility] [place] [address] PATHOLOGY AND GENOMIC MEDICINE * ECG 12 lead (07/06/2018 7:19 PM CDT) Ventricular rate 84 [facility] Atrial rate 84 [facility] DC interval 164 [facility] QRSD interval 92 [facility] QT interval 372 [facility] QTC interval 439 [facility] QRS axis 1 151 [facility] T wave axis 145 [facility] EKG impression Normal sinus rhythm-Right axis [facility] MUSE deviation-Abnormal ECG-No previous ECGs available- Performing Organization Address [facility] Phone Number [address] [address] * CRITICAL CARE (07/06/2018 6:31 PM CDT) [...] Product name Red Blood Cells -1, Leukored [facility] DEPARTMENT OF PATHOLOGY AND GENOMIC MEDICINE Unit number [id number] [facility] DEPARTMENT OF PATHOLOGY AND GENOMIC MEDICINE Product code [id number] [facility] DEPARTMENT OF PATHOLOGY AND GENOMIC MEDICINE Dispense status Transfused [facility] DEPARTMENT OF PATHOLOGY AND GENOMIC MEDICINE Blood expiration date [facility] DEPARTMENT OF PATHOLOGY AND GENOMIC MEDICINE Blood type code 9500 [facility] DEPARTMENT OF PATHOLOGY AND GENOMIC MEDICINE Blood type O NEGATIVE [facility] DEPARTMENT OF PATHOLOGY AND GENOMIC MEDICINE Product name Red Blood Cells -1, Leukored [facility] DEPARTMENT OF PATHOLOGY AND [employer] MEDICINE Unit number [id number] [facility] DEPARTMENT OF PATHOLOGY AND GENOMIC MEDICINE Product code [id number] [facility] DEPARTMENT OF PATHOLOGY AND GENOMIC MEDICINE Dispense status Transfused [facility] DEPARTMENT OF PATHOLOGY AND GENOMIC MEDICINE Blood expiration date [id number] [facility] DEPARTMENT OF PATHOLOGY AND GENOMIC MEDICINE Blood type code 5100 [facility] DEPARTMENT OF PATHOLOGY AND GENOMIC MEDICINE Blood type O POSITIVE [facility] DEPARTMENT OF PATHOLOGY AND GENOMIC MEDICINE Performing Organization Address City/[facility] Centercode Phone Number [address] [address] PATHOLOGY AND GENOMIC MEDICINE * Type and screen (07/06/2018 5:20 PM CDT) ABO grouping O [facility] DEPARTMENT OF PATHOLOGY AND GENOMIC MEDICINE Rh type POS [facility] DEPARTMENT OF PATHOLOGY AND GENOMIC MEDICINE Antibody screen (gel) NEG [facility] DEPARTMENT OF PATHOLOGY AND GENOMIC MEDICINE Specimen Blood Performing Organization Address City/[facility] Centercode Phone Number [address] [address] PATHOLOGY AND GENOMIC MEDICINE * Lipase level (07/06/2018 5:20 PM CDT) Lipase 22 13 - 60 U/L [facility] DEPARTMENT OF PATHOLOGY AND GENOMIC MEDICINE Specimen Plasma specimen Performing Organization Address City/State/Zipcode Phone Number [facility] DEPARTMENT OF [address] [place] [phone] PATHOLOGY AND GENOMIC MEDICINE * Creatinine level (05/20/2018 10:31 AM CDT) Creatinine 0.82 0.50 - 0.99 mg/dL [facility] Comment: [place] For patients >49 years of age, the reference limit for Creatinine is approximately 13% higher for people identified as -Nigerien. EGFR Non-Afr. Nigerien 75 > OR=60 mL/min/1.73m2 [facility] [place] EGFR 87 > OR=60 mL/min/1.73m2 [facility] [place] Specimen Blood Resulting Agency Comment Performing Organization Information: Site ID: [id number] Name[facility] Address: [address] [place] [id number] Director: Danelle Mujica Performing Organization Address City/State/Zipcode Phone Number [facility] [place] [address] [place], [place] [phone] after 12/14/2017 Insurance Payer Benefit Subscriber ID Type Phone Address Plan / Group MEDICARE MEDICARE xxxxxxxxxxx Medicare [place], [place] ) [place] [address] Advance Directives Patient has advance care planning documents on file. For more information, tiffany onofre contact: Elías Fletcher [address] [place] [address]
[2018-12-16] MEDS ORDERED: EPINEPHRINE HCL 1:1000 1ML 1 MG/ML AMP ONE (00:53)
[2018-12-16] MEDS ORDERED: EPINEPHRINE 0.3 MG/0.3 ML PEN.INJCTR SC STA (00:54)
[2018-12-16] MEDS ORDERED: EPINEPHRINE HCL SYRINGE ONE (00:54)
[2018-12-16] MEDS ORDERED: METHYLPREDNISOLONE SOD SUCC 125 MG/2ML VIAL IV ONE (00:54)
[2018-12-16] MEDS ORDERED: METHYLPREDNISOLONE SOD SUCC 125 MG/2ML VIAL ONE (00:54)
[2018-12-16] MEDS ORDERED: DIPHENHYDRAMINE HCL INJ 50 MG/ML VIAL IV ONE (00:55)
[2018-12-16] MEDS ORDERED: FAMOTIDINE 20 MG/2 ML VIAL IV ONE (00:55)
[2018-12-16] MEDS ORDERED: FAMOTIDINE 20 MG/2 ML VIAL IV STA (00:55)
[2018-12-16] MEDS ORDERED: DIPHENHYDRAMINE HCL INJ 50 MG/ML VIAL ONE (00:55)
[2018-12-16] MEDS ORDERED: SODIUM CHLORIDE 0.9% 500ML 500 ML IV STA (01:51)
[2018-12-16 02:01] LABS: BASOPHILS % 0.2 % (0.0-1.0); EOSINOPHILS # (AUTO) 0.1 (0.0-0.4); EOSINOPHILS % 0.6 % (0.0-6.0); HEMATOCRIT 44.9 % (34.2-44.1); HEMOGLOBIN 14.4 g/dL (12.0-16.0); LYMPHOCYTES % 7.8 % (18.0-39.1); MEAN CORPUSCULAR HEMOGLOBIN 26.4 pg (28-32); MEAN CORPUSCULAR HGB CONC 32.1 g/dL (31-35); MEAN CORPUSCULAR VOLUME 82.2 fL (81-99); MONOCYTES # (AUTO) 0.3 (0.2-0.8); MONOCYTES % 2.4 % (4.4-11.3); NEUTROPHILS # (AUTO) 11.4 (2.1-6.9); NEUTROPHILS % 88.3 % (38.7-80.0); PLATELET COUNT 396 x10e3/uL (140-360); RED BLOOD COUNT 5.46 x10e6/uL (3.6-5.1); RED CELL DISTRIBUTION WIDTH 17.3 % (11.7-14.4)
[2018-12-16 02:18] LABS: STREPTOCOCCUS GRP A ANTIGEN NEGATIVE (NEGATIVE)
[2018-12-16 02:23] LABS: ALBUMIN 3.5 g/dL (3.5-5.0); ALBUMIN/GLOBULIN RATIO 0.9 (0.8-2.0); ANION GAP 15.7 mmol/L (8-16); CALCIUM 8.8 mg/dL (8.4-10.2); CREATININE, SERUM 1.48 mg/dL (0.57-1.11); POTASSIUM 4.7 mmol/L (3.5-5.1)
[2018-12-16 02:33] LABS: INFLUENZAE A&B ANTIGEN (RAPID) POSITIVE FLU B (NEGATIVE)
--- OUTSIDE RECORDS SUMMARY | 2018-12-16 02:45 | XMS REPORT | Clinical Summary ---
Author Author [facility] Organization [facility] Address Unknown Phone Unavailable Care Team Providers Care Band Sewer Name Role Phone Narayan Meeks MD PCP [...] symptoms) for up to 180 days. Active melvin-jack-s.phos-phsa Take 1 tablet 30 capsule 0 l-hyo [...] Overview: Added automatically from request for surgery [id number] Uterine fibroid 12/04/2015 Renal cell carcinoma 12/04/2015 [...] tract infection without hematuria, site unspecified 07/21/2018 [facility] General Internal Medicine - Encounter 07/23/2018 [...] 07/08/2018 Narayan Meeks MD 06/26/2018 Telephone Narayan Esparza MD Renal cell carcinoma of left kidney (Primary Dx); Urinary tract infection without hematuria, site unspecified 05/21/2018 Office Visit Narayan Esparza MD 05/20/2018 Telephone Narayan Esparza MD 04/14/2018 Refill Narayan Esparza MD Urinary tract infection without hematuria, site unspecified (Primary Dx) 01/02/2018 Refill Urology after 12/15/2017 Family History Relation Name Status Comments Brother [...] 36.8 C (98.3 F) 08/03/2018 3:15 PM JOURNAL ENTRY AUDIT CLERK Respiratory Rate 18 07/23/2018 10:43 AM CDT Oxygen Saturation 94% - Inhaled Oxygen - Concentration 12/03/2018 10:48 AM CDT Weight 103 kg (228 lb) 12/03/2018 10:48 AM CDT Height 165.1 cm (5' 5") 12/03/2018 10:48 AM CDT Body Mass Index 37.94 Plan of Treatment Care Team Description Date [place] [address] [address] [address] [place], [place] [id number] 08/26/2019 Office Visit Urology Health Maintenance Due [...] urinary tract MICROSCOPY, WITH REFLEX 10:01 AM JOURNAL ENTRY AUDIT CLERK infection TO CULTURE URINE CULTURE Routine 08/05/2018 10:01 AM JOURNAL ENTRY AUDIT CLERK POC URINALYSIS DIPSTICK Routine 08/03/2018 Pyelonephritis 4:39 PM JOURNAL ENTRY AUDIT CLERK URINE CULTURE Routine 08/03/2018 Pyelonephritis 3:39 PM JOURNAL ENTRY AUDIT CLERK URINALYSIS, AUTOMATED Routine 08/03/2018 Pyelonephritis WITH MICROSCOPY 3:38 PM JOURNAL ENTRY AUDIT CLERK OBTAIN MEDICAL RECORDS Routine 07/29/2018 [facility] CATH [...] ECG 12-LEAD STAT 07/06/2018 7:19 PM CDT [place] CRITICAL CARE, E/M Routine 07/06/2018 30-74 MINUTES [...] of 10:31 AM CDT left kidney after 12/15/2017 Results * POC urinalysis dipstick (12/03/2018 10:51 [...] period is included. Urine culture SEE NOTE [employer] Comment: [place] CULTURE, URINE, ROUTINE MICRO NUMBER:[id number] TEST STATUS: FINAL SPECIMEN SOURCE: NOT GIVEN SPECIMEN QUALITY:ADEQUATE RESULT: No Growth Specimen Urine - Urine, clean catch Resulting Agency Comment Performing Organization Information: Site ID: [id number] Name: [facility] Lab Address: [address] [place] [phone] Director: Danelle Mujica Performing Organization Address City/State/Zipcode Phone Number [employer] [place] [phone] * Urinalysis screen and microscopy, with reflex to culture (08/05/2018 10:01 AM JOURNAL ENTRY AUDIT CLERK) Only the most recent of 3 results within the time period is included. Specimen site Clean catch [facility] Color, UA Straw YELLOW [facility] Appearance, UA Clear Clear [facility] Specific gravity, UA 1.018 1.005 - 1.030 [facility] pH, UA 5.0 5.0 - 8.0 [facility] Protein, UA Negative Negative [facility] Glucose, UA Negative Negative [facility] Ketones, UA Negative Negative [facility] Bilirubin, UA Negative Negative [facility] Blood, UA Negative Negative [facility] Nitrite, UA Negative NEGATIVE [facility] Urobilinogen, UA <2.0 <2.0 E.U./dL [facility] Leukocyte esterase, UA Negative Negative [facility] Epithelial cells, UA 1 0 - 15 /HPF [facility] WBC, UA None seen 0 - 5 /Hpf [facility] RBC, UA None seen 0 - 5 /HPF [facility] Bacteria, UA None seen None seen [facility] Yeast, UA None seen None Seen [facility] Yeast with pseudohyphae, None seen [facility] Specimen Urine Performing Organization Address [facility] Phone Number [facility] [address] [place] [address] PATHOLOGY AND GENOMIC MEDICINE [address] [place] [address] [facility] * Urinalysis, automated with microscopy (08/03/2018 3:38 PM JOURNAL ENTRY AUDIT CLERK) Color, UA YELLOW YELLOW [facility] [place] Appearance CLOUDY (A) CLEAR [facility] [place] Specific gravity, urine 1.022 1.001 - 1.035 [facility] [place] pH, urine 5.5 5.0 - 8.0 [facility] [place] Glucose, urine NEGATIVE NEGATIVE [facility] [place] Bilirubin, UA NEGATIVE NEGATIVE [facility] [place] Ketones, UA NEGATIVE NEGATIVE [facility] [place] Occult blood, urine NEGATIVE NEGATIVE [facility] [place] Protein, UA NEGATIVE NEGATIVE [facility] [place] Nitrite, UA NEGATIVE NEGATIVE [facility] [place] Leukocyte esterase, UA NEGATIVE NEGATIVE [facility] [place] WBC, UA 0-5 < OR=5 /HPF [facility] [place] RBC, UA 0-2 < OR=2 /HPF [facility] [place] Squamous epithelial 0-5 < OR=5 /HPF [facility] cells, UA [place] Bacteria, UA FEW (A) NONE SEEN /HPF [facility] [place] Hyaline casts, UA NONE SEEN NONE SEEN /LPF [facility] [place] Specimen Urine Resulting Agency Comment Performing Organization Information: Site ID: [id number] Name: [facility] Lab Address: [address] [place] [phone] Director: Danelle Mujica Performing Organization Address City/State/Zipcode Phone Number [employer] [place] [address] [phone] * Obtain medical records (07/29/2018) Narrative Performed At * PICC INSERTION (07/23/2018 4:07 PM CDT) Narrative Performed At Johanna Dan RN 07/23/20184:09 PM PICC insertion Date/Time: 07/23/2018 4:08 PM Performed by: JOHANNA DAN Authorized by: YAYA VERAS Consent: Consent obtained:Verbal Consent given by:Patient Risks discussed: infection, superficial thrombus and deep vein thrombus [place] protocol: Procedure explained and questions answered to [...] (Will create an LDA): Patient position:Trendelenburg Indication:Known extermination supervisor IV therapy Location:Left basilic Device Type:Non-valved Catheter size:5 Fr PICC Characteristics: Catheter Brand:Bard Internal Catheter Length (cm):41 Total Catheter Length (cm):41 Catheter Lot Number:[id number] Catheter Expiration Date:06/21/2019 Procedure Details: Landmarks identified: [...] is included. Estimated GFR 77 mL/min/1.73 m2 [facility] DEPARTMENT OF Comment: PATHOLOGY AND CatergoryUnitsInte GENOMIC MEDICINE rpretation G1 >=90 Normal or high G2 60-89Mildly decreased [id number] Mildly to moderately decreased [id number] Moderately to severely decreased G4 15-29Severely decreased G5 <15Kidney failure The eGFR was calculated using the Chronic Kidney Disease Epidemiology Collaboration (CKD-EPI) equation. Interpretation is based on recommendations of the National Kidney Foundation-Kidney Disease Outcomes Quality Initiative (NKF-KDOQI) published in 2014. Specimen Plasma specimen Performing Organization Address City/State/Zipcode Phone Number [place] [phone] [facility] [address] [place] [address] PATHOLOGY AND [facility]oka5 MEDICINE * CBC with platelet and differential (07/23/2018 4:15 AM CDT) Only the most recent of 6 results within the time period is included. WBC 2.7 (L) 4.5 - 11.0 k/uL [facility] DEPARTMENT OF PATHOLOGY AND GENOMIC MEDICINE RBC 3.45 (L) 4.20 - 5.50 M/uL [facility] DEPARTMENT OF PATHOLOGY AND GENOMIC MEDICINE HGB 9.8 (L) 14.0 - 18.0 g/dL [facility] DEPARTMENT OF PATHOLOGY AND GENOMIC MEDICINE HCT 31.0 (L) 37.0 - 47.0 % [facility] DEPARTMENT OF PATHOLOGY AND GENOMIC MEDICINE MCV 89.9 82.0 - 100.0 fL [facility] DEPARTMENT OF PATHOLOGY AND GENOMIC MEDICINE MCH 28.4 27.0 - 34.0 pg [facility] DEPARTMENT OF PATHOLOGY AND GENOMIC MEDICINE MCHC 31.6 31.0 - 37.0 g/dL [facility] DEPARTMENT OF PATHOLOGY AND GENOMIC MEDICINE RDW - SD 53.4 37.0 - 55.0 fL [facility] DEPARTMENT OF PATHOLOGY AND GENOMIC MEDICINE MPV 10.2 8.8 - 13.2 fL [facility] DEPARTMENT OF PATHOLOGY AND GENOMIC MEDICINE Platelet count 186 150 - 400 K/uL [facility] DEPARTMENT OF PATHOLOGY AND GENOMIC MEDICINE Nucleated RBC 0.00 /100 WBC [facility] DEPARTMENT OF PATHOLOGY AND GENOMIC MEDICINE Neutrophils 36.0 (L) 39.0 - 69.0 % [facility] DEPARTMENT OF PATHOLOGY AND GENOMIC MEDICINE Lymphocytes 46.7 (H) 25.0 - 45.0 % [facility] DEPARTMENT OF PATHOLOGY AND GENOMIC MEDICINE Monocytes 14.0 (H) 0.0 - 10.0 % [facility] DEPARTMENT OF PATHOLOGY AND GENOMIC MEDICINE Eosinophils 2.6 0.0 - 5.0 % [facility] DEPARTMENT OF PATHOLOGY AND GENOMIC MEDICINE Basophils 0.7 0.0 - 1.0 % [facility] DEPARTMENT OF PATHOLOGY AND GENOMIC MEDICINE Immature granulocytes 0.0Comment: "Immature 0.0 - 1.0 % [facility] DEPARTMENT OF granulocytes" (promyelocytes, PATHOLOGY AND myelocytes, metamyelocytes) GENOMIC MEDICINE Specimen Blood Performing Organization Address City/[facility]/Zipcode Phone Number [address] [place] [address] PATHOLOGY [facility] [email or web address] [facility] * Basic metabolic panel (07/23/2018 4:15 AM CDT) Only the most recent of 2 results within the time period is included. Sodium 138 135 - 148 mEq/L [facility] DEPARTMENT OF PATHOLOGY AND GENOMIC MEDICINE Potassium 4.4 3.5 - 5.0 mEq/L [facility] DEPARTMENT OF PATHOLOGY AND GENOMIC MEDICINE Chloride 107 99 - 109 mEq/L [facility] DEPARTMENT OF PATHOLOGY AND GENOMIC MEDICINE CO2 18 (L) 24 - 31 mEq/L [facility] OF PATHOLOGY AND GENOMIC MEDICINE Anion gap 13@ANIO 7 - 15 mEq/L [facility] DEPARTMENT OF PATHOLOGY AND GENOMIC MEDICINE BUN 11 8 - 24 mg/dL [facility] DEPARTMENT OF PATHOLOGY AND GENOMIC MEDICINE Creatinine 0.80 0.50 - 0.90 mg/dL [facility] PATHOLOGY AND GENOMIC MEDICINE Glucose 113 (H) 65 - 99 mg/dL [facility] PATHOLOGY AND GENOMIC MEDICINE Calcium 8.3 (L) 8.6 - 10.6 mg/dL [facility] PATHOLOGY AND [facility] MEDICINE Specimen Plasma specimen Performing Organization Address City/[facility]/Zipcode Phone Number [address] [place] [address] PATHOLOGY [facility] [email or web address] [facility] * MRI Abdomen W Wo Contrast [...] cysts, largest 1.2 cm. 3.Mild hepatic steatosis. [facility]-[id number] Procedure Note Interface, Radiology Results Incoming - [...] largest 1.2 cm. 3. Mild hepatic steatosis. [facility]-[id number] Performing Organization Address City/State/Zipcode Phone Number [facility] [address] [place] [phone] * Blood culture, aerobic & anaerobic (07/21/2018 11:30 AM CDT) Only the most recent of 2 results within the time period is included. Blood culture isolate No growth after 5 days of [facility] DEPARTMENT OF incubation. PATHOLOGY AND Comment: GENOMIC MEDICINE Specimen Information Specimen Source: Blood Specimen Site: Hand, left Specimen Blood - Hand, left Performing Organization Address City/[facility] Phone Number [facility] DEPARTMENT OF [address] [place] [address] PATHOLOGY AND GENOMIC MEDICINE * CT Renal Stone Protocol (07/21/2018 11:25 AM CDT) Narrative Performed At EXAMINATION:CT RENAL STONE PROTOCOL [facility] CLINICAL HISTORY:L flank painhematuria TECHNIQUE:Multiple axial images [...] or lymphadenopathy. 3.Degenerative change in the spine. [id number] Procedure Note Interface, Radiology Results Incoming - [...] lymphadenopathy. 3. Degenerative change in the spine. [id number] Performing Organization Address [facility] Phone Number [facility] [address] [place] [address] * Gram stain (07/21/2018 9:10 AM CDT) Only the most recent of 2 results within the time period is included. Gram stain result No WBC's [facility] DEPARTMENT OF Few Gram negative rods PATHOLOGY AND Comment: GENOMIC MEDICINE Specimen Information Specimen Source: Urine Specimen Site: Random void Specimen Urine - Random void Performing Organization Address [facility] Phone Number [facility] OF [address] [place] [address] PATHOLOGY AND GENOMIC MEDICINE * Magnesium level (07/21/2018 9:10 AM CDT) Magnesium 2.2 1.7 - 2.4 mg/dL [facility] DEPARTMENT OF PATHOLOGY AND GENOMIC MEDICINE Specimen Plasma specimen Performing Organization Address [facility] Phone Number [facility] [address] [facility] [address] [place] [address] PATHOLOGY AND GENOMIC MEDICINE * Comprehensive metabolic panel (07/21/2018 9:10 AM CDT) Only the most recent of 2 results within the time period is included. Sodium 135 135 - 148 mEq/L [facility] OF PATHOLOGY AND GENOMIC MEDICINE Potassium 5.2 (H) 3.5 - 5.0 mEq/L [facility] OF PATHOLOGY AND GENOMIC MEDICINE Chloride 101 99 - 109 mEq/L [facility] PATHOLOGY AND GENOMIC MEDICINE CO2 22 (L) 24 - 31 mEq/L [facility] PATHOLOGY AND GENOMIC MEDICINE Anion gap 12@ANIO 7 - 15 mEq/L [facility] PATHOLOGY AND GENOMIC MEDICINE BUN 20 8 - 24 mg/dL [facility] PATHOLOGY AND GENOMIC MEDICINE Creatinine 1.00 (H) 0.50 - 0.90 mg/dL [facility] PATHOLOGY AND GENOMIC MEDICINE Glucose 131 (H) 65 - 99 mg/dL [facility] PATHOLOGY AND GENOMIC MEDICINE Calcium 9.0 8.6 - 10.6 mg/dL [facility] PATHOLOGY AND GENOMIC MEDICINE Protein 8.0 6.3 - 8.2 g/dL [facility] PATHOLOGY AND GENOMIC MEDICINE Albumin 4.4 3.5 - 5.0 g/dL [facility] PATHOLOGY AND GENOMIC MEDICINE A/G ratio 1.22 0.70 - 3.80 [facility] PATHOLOGY AND GENOMIC MEDICINE Alkaline phosphatase 82 30 - 115 U/L [facility] PATHOLOGY AND GENOMIC MEDICINE AST 26 15 - 46 U/L [facility] PATHOLOGY AND GENOMIC MEDICINE ALT 31 10 - 55 U/L [facility] PATHOLOGY AND [facility]oka5 MEDICINE Total bilirubin 0.4 0.2 - 1.2 mg/dL [facility] OF PATHOLOGY AND GENOMIC MEDICINE Specimen Plasma specimen Performing Organization Address City/State/Zipcode Phone Number [address] [place] [address] PATHOLOGY AND [email or web address] [facility] * URINALYSIS, COMPLETE, WITH REFLEX TO CULTURE (07/09/2018 4:45 PM CDT) Color, UA DARK YELLOW YELLOW [facility] [place] Appearance CLOUDY (A) CLEAR [facility] [place] Specific gravity, urine 1.031 1.001 - 1.035 [facility] [place] pH, urine 6.0 5.0 - 8.0 [facility] [place] Glucose, urine NEGATIVE NEGATIVE [facility] [place] Bilirubin, UA NEGATIVE NEGATIVE [facility] [place] Ketones, UA TRACE (A) NEGATIVE [facility] [place] Occult blood, urine NEGATIVE NEGATIVE [facility] [place] Protein, UA TRACE (A) NEGATIVE [facility] [place] Nitrite, UA POSITIVE (A) NEGATIVE [facility] [place] Leukocyte esterase, UA 2+ (A) NEGATIVE [facility] [place] WBC, UA 10-20 (A) < OR=5 /HPF [facility] [place] RBC, UA 0-2 < OR=2 /HPF [facility] [place] Squamous epithelial 0-5 < OR=5 /HPF [facility] cells, UA [place] Bacteria, UA MANY (A) NONE SEEN /HPF [facility] [place] Calcium oxalate crystals, FEW NONE OR FEW /HPF [facility] UA [place] Amorphous crystals FEW NONE OR FEW /HPF [facility] [place] Hyaline casts, UA NONE SEEN NONE SEEN /LPF [facility] [place] Comment FEW MUCOUS THREADS [facility] [place] Reflex CULTURE INDICATED - RESULTS TO [facility] FOLLOW [place] Narrative Performed At FASTING:NO [facility] FASTING: NO Resulting Agency Comment Performing Organization Information: Site ID: [id number] Name: [facility] Lab Address: [address] [place] [phone] Director: Danelle Mujica Performing Organization Address [facility] Phone Number [employer] [place] [phone] * Total iron binding capacity (07/08/2018 6:54 AM CDT) Iron level 69 37 - 145 ug/dL [facility] DEPARTMENT OF PATHOLOGY AND GENOMIC MEDICINE Iron binding capacity 348 200 - 400 ug/dL [facility] DEPARTMENT OF PATHOLOGY AND GENOMIC MEDICINE % Saturation 19.8 15.0 - 38.0 % [facility] DEPARTMENT OF PATHOLOGY AND GENOMIC MEDICINE Specimen Plasma specimen Performing Organization Address [facility] [place] [address] [facility] * Reticulocyte count (07/08/2018 6:54 AM CDT) Retic %, auto 3.2 (H) 0.5 - 2.1 % [facility] DEPARTMENT OF PATHOLOGY AND GENOMIC MEDICINE Retic absolute, auto 0.1179 (H) 0.0210 - 0.1155 m/uL [facility] DEPARTMENT OF PATHOLOGY AND GENOMIC MEDICINE Specimen Blood Performing Organization Address [facility] [place] [address] PATHOLOGY AND [facility] * Ferritin level (07/08/2018 6:54 AM CDT) Ferritin level 46 13 - 150 ng/mL [facility] DEPARTMENT OF PATHOLOGY AND GENOMIC MEDICINE Specimen Plasma specimen Performing Organization Address City/State/Zipcode Phone Number [facility] [place] [address] PATHOLOGY AND GENOMIC MEDICINE * Transfuse RBC, 2 Units (07/07/2018 7:36 PM CDT) Only the most recent of 6 results within the time period is included. * Surgical pathology request (07/07/2018 1:53 PM CDT) [facility] DEPARTMENT OF PATHOLOGY AND GENOMIC MEDICINE Surgical pathology report See link below for PDF Lab [facility] DEPARTMENT OF Report PATHOLOGY AND GENOMIC MEDICINE Result status This is Final Report for [facility] DEPARTMENT OF [id number] PATHOLOGY AND GENOMIC MEDICINE Performing Organization Address City/[facility] [place] [address] PATHOLOGY AND GENOMIC MEDICINE * Smear review (07/07/2018 3:48 AM CDT) Only the most recent of 2 results within the time period is included. Platelet slide review Sona adequate [facility] DEPARTMENT OF PATHOLOGY AND GENOMIC MEDICINE Anisocytosis Moderate [facility] DEPARTMENT OF PATHOLOGY AND GENOMIC MEDICINE Ovalocytes Moderate [facility] DEPARTMENT OF PATHOLOGY AND GENOMIC MEDICINE Performing Organization Address City/[facility] Phone Number [facility] [place] [address] PATHOLOGY AND GENOMIC MEDICINE * Troponin (07/07/2018 3:48 AM CDT) Only the most recent of 2 results within the time period is included. Troponin <0.30 0.00 - 0.30 ng/mL [facility] DEPARTMENT OF Comment: PATHOLOGY AND 0.30 - 1.49 GENOMIC MEDICINE ng/mlMay indicate increased risk of acute coronary syndrome. >=1.5 ng/ml Consistent with acute myocardial infarction. The diagnostic value of a single normal or non-diagnostic result is questionable.Serial samples at 2-6 hour intervals are required to rule out acute myocardial injury. Specimen Plasma specimen Performing Organization Address City/[facility]/[place] [address] PATHOLOGY AND GENOMIC MEDICINE * Gastrointestinal panel (07/06/2018 8:17 PM CDT) Gastrointestinal panel Negative for all pathogens [facility] DEPARTMENT OF tested: PATHOLOGY AND Negative [...] Specimen Stool - Nonpreserved Performing Organization Address [facility] Phone Number [facility] [place] [address] PATHOLOGY AND GENOMIC MEDICINE * B natriuretic peptide (07/06/2018 7:40 PM CDT) BNP 45 0 - 100 pg/mL [facility] DEPARTMENT OF PATHOLOGY AND GENOMIC MEDICINE Specimen Blood Performing Organization Address [facility] Phone Number [facility] [place] [address] PATHOLOGY AND GENOMIC MEDICINE * ECG 12 lead (07/06/2018 7:19 PM CDT) Ventricular rate 84 [facility] Atrial rate 84 [facility] AK interval 164 [facility] QRSD interval 92 [facility] QT interval 372 [facility] QTC interval 439 [facility] QRS axis 1 151 [facility] T wave axis 145 [facility] EKG impression Normal sinus rhythm-Right axis [facility] MUSE deviation-Abnormal ECG-No previous ECGs available- Performing Organization Address [facility] Phone Number [address] [address] * CRITICAL CARE (07/06/2018 6:31 PM CDT) [...] Product name Red Blood Cells -1, Leukored [facility] DEPARTMENT OF PATHOLOGY AND GENOMIC MEDICINE Unit number [id number] [facility] DEPARTMENT OF PATHOLOGY AND GENOMIC MEDICINE Product code [id number] [facility] DEPARTMENT OF PATHOLOGY AND GENOMIC MEDICINE Dispense status Transfused [facility] DEPARTMENT OF PATHOLOGY AND GENOMIC MEDICINE Blood expiration date [facility] DEPARTMENT OF PATHOLOGY AND GENOMIC MEDICINE Blood type code 9500 [facility] DEPARTMENT OF PATHOLOGY AND GENOMIC MEDICINE Blood type O NEGATIVE [facility] DEPARTMENT OF PATHOLOGY AND GENOMIC MEDICINE Product name Red Blood Cells -1, Leukored [facility] DEPARTMENT OF PATHOLOGY AND [facility]oka5 MEDICINE Unit number [id number] [facility] DEPARTMENT OF PATHOLOGY AND GENOMIC MEDICINE Product code [id number] [facility] DEPARTMENT OF PATHOLOGY AND GENOMIC MEDICINE Dispense status Transfused [facility] DEPARTMENT OF PATHOLOGY AND GENOMIC MEDICINE Blood expiration date [id number] [facility] DEPARTMENT OF PATHOLOGY AND GENOMIC MEDICINE Blood type code 5100 [facility] DEPARTMENT OF PATHOLOGY AND GENOMIC MEDICINE Blood type O POSITIVE [facility] DEPARTMENT OF PATHOLOGY AND GENOMIC MEDICINE Performing Organization Address City/[facility] Phone Number [address] [address] PATHOLOGY AND GENOMIC MEDICINE * Type and screen (07/06/2018 5:20 PM CDT) ABO grouping O [facility] DEPARTMENT OF PATHOLOGY AND GENOMIC MEDICINE Rh type POS [facility] DEPARTMENT OF PATHOLOGY AND GENOMIC MEDICINE Antibody screen (gel) NEG [facility] DEPARTMENT OF PATHOLOGY AND GENOMIC MEDICINE Specimen Blood Performing Organization Address City/[facility] Phone Number [address] [address] PATHOLOGY AND GENOMIC MEDICINE * Lipase level (07/06/2018 5:20 PM CDT) Lipase 22 13 - 60 U/L [facility] DEPARTMENT OF PATHOLOGY AND GENOMIC MEDICINE Specimen Plasma specimen Performing Organization Address City/State/Zipcode Phone Number [facility] DEPARTMENT OF [address] [place] [address] PATHOLOGY AND GENOMIC MEDICINE * Creatinine level (05/20/2018 10:31 AM CDT) Creatinine 0.82 0.50 - 0.99 mg/dL [employer] Comment: [place] For patients >49 years of age, the reference limit for Creatinine is approximately 13% higher for people identified as -Australian. EGFR Non-Afr. Australian 75 > OR=60 mL/min/1.73m2 [employer] [place] EGFR 87 > OR=60 mL/min/1.73m2 [employer] [place] Specimen Blood Resulting Agency Comment Performing Organization Information: Site ID: [id number] Name: [facility] Address: [address] [place] [id number] Director: Danelle Mujica Performing Organization Address City/State/Zipcode Phone Number [employer] [place] [address] [place], [place] [phone] after 12/15/2017 Insurance Payer Benefit Subscriber ID Type Phone Address Plan / Group MEDICARE MEDICARE xxxxxxxxxxx Medicare [place], [place] PART A AND B ) [place] [address] Advance Directives Patient has advance care planning documents on file. For more information, tiffany onofre contact: Elías Fletcher [address] [place] [address]
--- NOTE | 2018-12-16 03:12 | Diagnostic Imaging Report ---
EXAMINATION: CHEST SINGLE (PORTABLE) INDICATION: ?pna COMPARISON: None FINDINGS: AP view TUBES and LINES: None. LUNGS: There is no evidence of pneumonia or pulmonary edema. PLEURA: No pleural effusion or pneumothorax. HEART AND MEDIASTINUM: The cardiomediastinal silhouette is unremarkable. BONES AND SOFT TISSUES: No acute osseous lesion. Soft tissues are unremarkable. UPPER ABDOMEN: No free air under the diaphragm. IMPRESSION: No acute thoracic abnormality. Signed by: DR. Jose Bose MD on 12/16/2018 3:09 AM
[2018-12-16] MEDS ORDERED: METHYLPREDNISOLONE SOD SUCC 40 MG/ML VIAL 1ML IV SCH (06:00)
--- NOTE | 2018-12-16 12:18 | History and Physical ---
REASON FOR ADMISSION: 1. Anaphylaxis reaction secondary to Rocephin. 2. Influenza B. HISTORY OF PRESENT ILLNESS: The patient is a diabetic lady with history of chronic kidney disease stage 3, who presented to outpatient physician with upper respiratory symptoms, where she was given a Rocephin shot, and an hour to an hour and a half later, she started having swelling of her tongue, lips, and hives, as well as a decrease in blood pressure consistent with anaphylactic shock, so she presented to the emergency room, where she was given IV fluids, epinephrine, and steroids with improvement of all parameters, but currently right now she is essentially hive-free, able to breathe and converse better. Blood pressure is stable with systolic about 110 to 120, but still has some swelling in the upper lip area. PAST MEDICAL HISTORY: Diabetes, chronic kidney disease stage 3. MEDICATIONS: See MAR. ALLERGIES: ROCEPHIN. SOCIAL HISTORY: Nonsmoker and nondrinker. FAMILY HISTORY: Noncontributory. PHYSICAL EXAMINATION: VITAL SIGNS: Blood pressure 120/70, pulse 83, saturations are 100% on nasal cannula, respiratory rate 14. GENERAL: She is no apparent distress, lying in bed. HEENT: The patient does have swelling of the upper lip and tongue is slightly swollen as well, but she is able to converse. NECK: Shows no stridor and no JVD. CARDIOVASCULAR: Regular rate and rhythm. LUNGS: Decreased breath sounds bilaterally. ABDOMEN: Good bowel sounds. Soft, nontender. EXTREMITIES: No clubbing or cyanosis. NEUROLOGIC: Nonfocal. SKIN: No hives. ASSESSMENT AND PLAN: 1. Anaphylactic shock. 2. Leukocytosis. Continue monitoring. 3. Diabetes. Continue monitoring. 4. Chronic kidney disease stage 3. Also continue to monitor. 5. Influenza B. We will start her on some Tamiflu once she is able to and is better. Please see hospital chart for full details. MD ROBBIN Perkins/JAYNA /[id number]
--- NOTE | 2018-12-18 03:44 | Discharge Summary ---
The patient left AMA for anaphylactic shock, angioedema due to Rocephin. HISTORY OF PRESENT ILLNESS: The patient is a 68-year-old lady who was seen by her primary care physician and was given Rocephin shot for bronchitis where she about an hour later, suffered anaphylactic shock, angioedema, and hives and when she was brought in, was placed on O2, steroids, and epinephrine with ultimate significant improvement of her symptoms, but at the time of leaving AMA, the patient was still having significant upper lip swelling and some mild tongue swelling, which was vastly improved per the patient stand up, but patient still have the evidence of the allergic reaction of the hives have resolved and then after rounds of cautioning, the patient and family just got up and left AMA, which was a very poor choice on her part, but she was a competent woman, who could make poor choices, which she did, so hopefully the patient will do well and follow up with her primary care physician. Please see hospital chart for full details. MD ROBBIN Perkins/JAYNA /[id number]
== END 2018-12-16 20:00 | disposition left against medical advice (07) ==
LOC: ER 23:41 → ERHOLD 12-16 02:42
PROVIDERS: ADMIT Internal Medicine; ATTEND Internal Medicine
DX: T88.6XXA Anaphylactic reaction due to adverse effect of correct drug or medicament properly administered, initial encounter (principal); T36.1X5A Adverse effect of cephalosporins and other beta-lactam antibiotics, initial encounter; T78.3XXA Angioneurotic edema, initial encounter; D72.829 Elevated white blood cell count, unspecified; J11.1 Influenza due to unidentified influenza virus with other respiratory manifestations; E11.22 Type 2 diabetes mellitus with diabetic chronic kidney disease; N18.3 Chronic kidney disease, stage 3 (moderate); Z79.4 Long term (current) use of insulin
CPT/HCPCS: 36415; 71045; 80053; 83518; 83605; 85025; 87070; 87400; 99284; G0378; J0171 ×2; J1200; J2920; J2930; J7040

== ENCOUNTER 2020-10-13 01:28 | Emergency (ER) | payer MEDICARE ==
[~2020-10-13] VITALS: Ht 165.1 cm; Wt 113.4 kg
[2020-10-13] MEDS ORDERED: FAMOTIDINE 20 MG/2 ML VIAL IV STA (01:56)
[2020-10-13] MEDS ORDERED: DIPHENHYDRAMINE HCL INJ 50 MG/ML VIAL IV ONE (02:00)
[2020-10-13 04:58] VITALS: BP 103/47
[2020-10-14] MEDS ORDERED: HYDROXYZIN10 MG/5 ML PO (18:17)
== END 2020-10-13 04:50 | disposition home or self-care (01) ==
LOC: ER 01:40
DX: L50.0 Allergic urticaria (principal); I10 Essential (primary) hypertension; Z88.1 Allergy status to other antibiotic agents; Z88.0 Allergy status to penicillin; Z88.2 Allergy status to sulfonamides
CPT/HCPCS: 99283; J1200

== ENCOUNTER 2020-10-14 16:11 | Emergency (ER) | payer MEDICARE ==
[~2020-10-14] VITALS: Ht 165.1 cm; Wt 113.4 kg
[2020-10-14] MEDS ORDERED: METHYLPREDNISOLONE SOD SUCC 125 MG/2ML VIAL IV NR (16:33)
[2020-10-14] MEDS ORDERED: FAMOTIDINE 20 MG/2 ML VIAL IV NR (16:45)
[2020-10-14] MEDS ORDERED: DIPHENHYDRAMINE HCL INJ 50 MG/ML VIAL IV ONE (16:45)
[2020-10-14] MEDS ORDERED: SODIUM CHLORIDE 0.9% 500ML 500 ML IV ONE (16:45)
[2020-10-14] MEDS ORDERED: HYDROXYZIN10 MG/5 ML PO (18:17)
== END 2020-10-14 18:48 | disposition home or self-care (01) ==
LOC: ER 16:33
DX: L30.9 Dermatitis, unspecified (principal)
CPT/HCPCS: 99283; J1200; J2930; J7040

== ENCOUNTER 2021-01-25 11:49 | Emergency (ER) | payer MEDICARE ==
[~2021-01-25] VITALS: Ht 165.1 cm; Wt 113.4 kg
[~2021-01-25 11:49] MED LIST changes: +HYDROXYZIN10 MG/5 ML PO
[2021-01-25] MEDS ORDERED: FAMOTIDINE 20 MG TAB PO ONE (12:45)
[2021-01-25] MEDS ORDERED: DEXAMETHASONE SOD PHOS 10 MG/1 ML VIAL IV ONE (12:45)
[2021-01-25] MEDS ORDERED: DEXAMETHASONE PHOS 10MG INJ 20 MG in SODIUM CHLORIDE 0.9% 50ML 50 ML IV ONE (13:00)
[2021-01-25 14:15] VITALS: BP 144/79
== END 2021-01-25 14:16 | disposition home or self-care (01) ==
LOC: ER 13:03
DX: R21 Rash and other nonspecific skin eruption (principal); T78.40XA Allergy, unspecified, initial encounter; I10 Essential (primary) hypertension; Z85.528 Personal history of other malignant neoplasm of kidney
CPT/HCPCS: 99282; J1100

== ENCOUNTER 2021-06-21 00:15 | Emergency (ER) | payer MEDICARE ==
[~2021-06-21] VITALS: Ht 165.1 cm; Wt 113.4 kg
[2021-06-21] MEDS ORDERED: DIPHENHYDRAMINE HCL INJ 50 MG/ML VIAL IV ONE (00:30)
[2021-06-21] MEDS ORDERED: METHYLPREDNISOLONE SOD SUCC 125 MG/2ML VIAL IV ONE (00:30)
[2021-06-21] MEDS ORDERED: METHYLPREDNISOLONE SOD SUCC 125 MG/2ML VIAL ONE (00:38)
[2021-06-21] MEDS ORDERED: DIPHENHYDRAMINE HCL INJ 50 MG/ML VIAL ONE (00:38)
[2021-06-21] MEDS ORDERED: FAMOTIDINE 20 MG/2 ML VIAL IV ONE (00:38)
[2021-06-21] MEDS ORDERED: FAMOTIDINE 20 MG/2 ML VIAL IV STA (00:39)
[2021-06-21] MEDS ORDERED: FAMOTIDINE 20 MG/2 ML VIAL IV SCH (09:00)
== END 2021-06-21 01:17 | disposition home or self-care (01) ==
LOC: ER 00:25
DX: R21 Rash and other nonspecific skin eruption (principal); T78.40XA Allergy, unspecified, initial encounter; I10 Essential (primary) hypertension; M35.00 Sjogren syndrome, unspecified; Z85.528 Personal history of other malignant neoplasm of kidney
CPT/HCPCS: 99283; J1200; J2930

== ENCOUNTER 2021-07-22 08:03 | Emergency (ER) | payer MEDICARE ==
[~2021-07-22] VITALS: Ht 165.1 cm; Wt 104.3 kg
[2021-07-22] MEDS ORDERED: FAMOTIDINE 20 MG/2 ML VIAL IV STA (08:16)
[2021-07-22] MEDS ORDERED: METHYLPREDNISOLONE SOD SUCC 125 MG/2ML VIAL IV STA (08:16)
[2021-07-22] MEDS ORDERED: SODIUM CHLORIDE 0.9% 1000ML 1,000 ML IV STA (08:16)
[2021-07-22] MEDS ORDERED: METHYLPREDNISOLONE SOD SUCC 125 MG/2ML VIAL ONE (08:18)
[2021-07-22] MEDS ORDERED: FAMOTIDINE 20 MG/2 ML VIAL IV ONE (08:18)
[2021-07-22] MEDS ORDERED: DIPHENHYDRAMINE HCL INJ 50 MG/ML VIAL ONE (08:18)
[2021-07-22] MEDS ORDERED: SODIUM CHLORIDE 0.9% 1000ML 1,000 ML ONE (08:19)
[2021-07-22] MEDS ORDERED: DIPHENHYDRAMINE HCL INJ 50 MG/ML VIAL IV ONE (08:30)
[2021-07-22 08:42] LABS: BASOPHILS % 0.4 % (0.0-1.0); EOSINOPHILS # (AUTO) 0.1 (0.0-0.4); EOSINOPHILS % 0.6 % (0.0-6.0); HEMATOCRIT 41.1 % (34.2-44.1); HEMOGLOBIN 12.8 g/dL (12.0-16.0); LYMPHOCYTES # (AUTO) 2.1 (1.0-3.2); LYMPHOCYTES % 27.1 % (18.0-39.1); MEAN CORPUSCULAR HEMOGLOBIN 26.5 pg (28-32); MEAN CORPUSCULAR HGB CONC 31.1 g/dL (31-35); MEAN CORPUSCULAR VOLUME 85.1 fL (81-99); MONOCYTES # (AUTO) 0.6 (0.2-0.8); MONOCYTES % 7.5 % (4.4-11.3); NEUTROPHILS # (AUTO) 5.1 (2.1-6.9); NEUTROPHILS % 63.9 % (38.7-80.0); PLATELET COUNT 391 x10e3/uL (140-360); RED BLOOD COUNT 4.83 x10e6/uL (3.6-5.1); RED CELL DISTRIBUTION WIDTH 13.4 % (11.7-14.4)
[2021-07-22 09:08] LABS: ALBUMIN 3.8 g/dL (3.5-5.0); ALBUMIN/GLOBULIN RATIO 0.9 (0.8-2.0); ANION GAP 14.9 mmol/L (8-16); CALCIUM 9.2 mg/dL (8.4-10.2); CREATININE, SERUM 0.86 mg/dL (0.57-1.11); POTASSIUM 3.9 mmol/L (3.5-5.1)
== END 2021-07-22 10:09 | disposition home or self-care (01) ==
LOC: ER 08:24
DX: L50.0 Allergic urticaria (principal)
CPT/HCPCS: 36415; 80053; 85025; 93005; 99283; J1200; J2930; J7030

== ENCOUNTER 2023-10-29 16:20 | Emergency (ER) | payer MEDICARE ==
[~2023-10-29] VITALS: Ht 165.1 cm; Wt 104.3 kg
[2023-10-29 18:29] LABS: BASOPHILS % 0.5 % (0.0-1.0); EOSINOPHILS # (AUTO) 0.1 (0.0-0.4); EOSINOPHILS % 1.9 % (0.0-6.0); HEMATOCRIT 36.2 % (34.2-44.1); LYMPHOCYTES % 32.9 % (18.0-39.1); MEAN CORPUSCULAR HEMOGLOBIN 29.7 pg (28-32); MEAN CORPUSCULAR HGB CONC 33.1 g/dL (31-35); MEAN CORPUSCULAR VOLUME 89.6 fL (81-99); MONOCYTES # (AUTO) 0.5 (0.2-0.8); MONOCYTES % 8.7 % (4.4-11.3); NEUTROPHILS # (AUTO) 3.5 (2.1-6.9); NEUTROPHILS % 55.8 % (38.7-80.0); PLATELET COUNT 231 x10e3/uL (140-360); RED BLOOD COUNT 4.04 x10e6/uL (3.6-5.1); RED CELL DISTRIBUTION WIDTH 13.9 % (11.7-14.4); WHITE BLOOD COUNT 6.21 x10e3/uL (4.8-10.8)
[2023-10-29 18:45] LABS: ALBUMIN 3.9 g/dL (3.5-5.0); ALBUMIN/GLOBULIN RATIO 1.1 (0.8-2.0); ANION GAP 12.1 mmol/L (8-16); BILIRUBIN,TOTAL 0.4 mg/dL (0.2-1.2); CREATININE, SERUM 0.71 mg/dL (0.57-1.11); POTASSIUM 4.1 mmol/L (3.5-5.1); TOTAL PROTEIN 7.6 g/dL (6.5-8.1)
[2023-10-29 18:53] LABS: CREATINE KINASE 90 IU/L (29-168)
[2023-10-29 19:00] LABS: TROPONIN I < 0.001 ng/mL (0-0.300)
[2023-10-29] MEDS ORDERED: SODIUM CHLORIDE 0.9% 100 ML ONE (19:12)
[2023-10-29] MEDS ORDERED: IOPAMIDOL 370 MG/ML 100 ML INFUS..BTL INJ ONE (19:12)
[2023-10-29 19:34] LABS: INR 1.05; PARTIAL THROMBOPLASTIN TIME 31.9 seconds (23.8-35.5); PROTHROMBIN TIME 13.9 seconds (11.9-14.5)
[2023-10-29 20:04] LABS: CLARITY,URINE CLEAR (CLEAR); COLOR,URINE YELLOW (YELLOW); LEUKOCYTE ESTERASE ,URINE NEGATIVE (NEGATIVE); NITRITE,URINE NEGATIVE (NEGATIVE); PH,URINE 6.5 (5 - 7)
[2023-10-29 20:05] LABS: BILIRUBIN,URINE NEGATIVE (NEGATIVE); GLUCOSE, URINE NEGATIVE (NEGATIVE); KETONES,URINE NEGATIVE (NEGATIVE); PROTEIN,URINE DIPSTICK NEGATIVE (NEGATIVE); URINE UROBILINOGEN 0.2 mg/dL (0.2 - 1)
[2023-10-29] MEDS: SODIUM CHLORIDE 0.9% 1000ML 1,000 ML IV STA (20:10)
[2023-10-29 20:17] LABS: EPITHELIAL CELLS,URINE FEW /LPF
[2023-10-29 21:15] VITALS: O2SAT 100
== END 2023-10-29 21:20 | disposition home or self-care (01) ==
LOC: ER 16:43
DX: R10.11 Right upper quadrant pain (principal); K92.2 Gastrointestinal hemorrhage, unspecified; R55 Syncope and collapse; I10 Essential (primary) hypertension; Z11.52 Encounter for screening for COVID-19; Z85.528 Personal history of other malignant neoplasm of kidney
CPT/HCPCS: 36415; 74174; 80053; 81001; 82550; 83690; 84484; 85025; 85610; 85730; 99284; J7030; J7050; Q9967; U0002

== ENCOUNTER 2025-07-13 14:02 | Emergency (ER) | payer MEDICARE ==
[~2025-07-13] VITALS: Ht 165.1 cm; Wt 90.7 kg
[2025-07-13 14:16] VITALS: TEMP 97.7
[2025-07-13 17:59] VITALS: PULSE 78; RESP 17
[2025-07-13 18:09] VITALS: BP 141/85; PULSE 78; O2SAT 100
== END 2025-07-13 17:57 | disposition home or self-care (01) ==
LOC: ER 15:02
DX: S01.112A Laceration without foreign body of left eyelid and periocular area, initial encounter (principal); W18.39XA Other fall on same level, initial encounter; Y93.01 Activity, walking, marching and hiking; Y92.89 Other specified places as the place of occurrence of the external cause; I10 Essential (primary) hypertension; M35.00 Sjogren syndrome, unspecified; Z85.528 Personal history of other malignant neoplasm of kidney
CPT/HCPCS: 70450; 70486; 72125; 99283